=== PATIENT | male | born 1965 | race Two or more races ===

== ENCOUNTER 2020-09-23 11:01 | Outpatient (REF) | payer MEDICARE, MEDICAID, SELFPAY ==
--- NOTE | ~2020-09-23 | XR_ITS ---
EXAMINATION: XR CHEST CLINICAL INFORMATION: Chest pain. COMPARISON: Most recent CT chest dated 11/10/2018. TECHNIQUE: 2 views of the chest were obtained. FINDINGS: Linear scarring redemonstrated within the right lung base. Right basilar pleural thickening appears unchanged. No new pleural effusion or pneumothorax. Stable cardiomediastinal silhouette. No new airspace consolidation. XR/XR chest 2V IMPRESSION: No acute cardiopulmonary findings. Right basilar linear scarring with pleural thickening, unchanged.
== END 2020-09-23 11:02 | disposition home or self-care (01) ==
LOC: HO.XRAY 11:01
PROVIDERS: PCP Internal Medicine; Visit Provider Internal Medicine
DX: R07.9 Chest pain, unspecified (principal)
CPT/HCPCS: 71046

== ENCOUNTER 2020-10-24 08:45 | Outpatient (REF) | payer MEDICARE, MEDICAID, SELFPAY ==
[2020-10-24 10:29] LABS: MANUAL DIFF FLAG NO
[2020-10-24 10:47] LABS: Basophils Percent Auto 0.3 % (0-2); Eosinophils Absolute Auto 0.1 X10*3/uL (0.0-0.4); Eosinophils Percent Auto 1.9 % (0-4); Hematocrit 44.6 % (42-52); Hemoglobin 14.6 g/dl (14.0-18.0); Imm Gran Abs Auto 0.03 X10*3/uL (0.00-0.03); Imm Gran Pct Auto 0.5 % (0.0-0.4); Lymphocytes Absolute Auto 2.6 X10*3/uL (1.2-4.9); Lymphocytes Percent Auto 40.8 % (20-40); Mean Corpuscular HGB Conc 32.7 g/dl (31.0-36.0); Mean Corpuscular Hemoglobin 30.8 pg (27.0-33.0); Mean Corpuscular Volume 94.1 fL (80-98); Monocytes Absolute Auto 0.5 X10*3/uL (0.1-1.2); Monocytes Percent Auto 7.7 % (2-11); Neutrophils Absolute Auto 3.1 X10*3/uL (2.0-8.3); Neutrophils Percent Auto 48.8 % (45-73); Platelet Count 267 X10*3/uL (160-400); Red Blood Count 4.74 X10*6/uL (4.60-5.80); Red Cell Distribution Width 13.7 % (11.0-16.0); White Blood Count 6.4 X10*3/uL (4.8-10.8)
[2020-10-24 11:06] LABS: Alanine Aminotransferase 19 U/L (0-40); Albumin Level 4.4 g/dL (3.5-5.0); Alkaline Phosphatase 75 U/L (39-117); Anion Gap 12 (12-20); Aspartate Amino Transferase 17 U/L (5-37); Bilirubin Total 0.2 mg/dL (0.0-1.0); Blood Urea Nitrogen 12 mg/dL (9-16); Calcium 9.7 mg/dL (8.4-10.2); Carbon Dioxide 27 mmol/L (22-29); Chloride 106 mmol/L (96-108); Cholesterol 238 mg/dL; Estimated Glomerular Filt Rate 53; Glucose Fasting 119 mg/dL (60-99); HDL Cholesterol 40 mg/dL; LDL Cholesterol Calculated 162 mg/dl; Potassium 4.5 mmol/L (3.3-5.1); Sodium 140 mmol/L (135-145); Triglycerides 184 mg/dL
[2020-10-31 15:41] LABS: TS Negative Control Passed; TS Panel A 0; TS Panel B 1; TS Positive Control Passed; TSpotTB Negative (SeeBelow)
== END 2020-10-24 08:46 | disposition home or self-care (01) ==
LOC: HO.LAB 08:45
PROVIDERS: PCP Internal Medicine; Visit Provider Internal Medicine
DX: Z11.1 Encounter for screening for respiratory tuberculosis (principal); D64.9 Anemia, unspecified; E66.9 Obesity, unspecified; Z68.36 Body mass index [BMI] 36.0-36.9, adult; E78.5 Hyperlipidemia, unspecified
CPT/HCPCS: 36415; 80053; 80061; 85025; 86481

== ENCOUNTER 2021-10-30 08:18 | Outpatient (REF) | payer MEDICARE, MEDICAID, SELFPAY ==
--- NOTE | ~2021-10-30 | XR_ITS ---
EXAMINATION: XR CHEST CLINICAL INFORMATION: R06.02 - Shortness of breath . Prior right lower lobectomy. COMPARISON: Chest radiographs 09/23/2020, 10/04/2017, 06/20/2017; CT chest noncontrast 11/10/2018. TECHNIQUE: 2 views of the chest were obtained. FINDINGS: There is mild volume loss on the right with disc atelectasis versus scarring right medial base similar to prior exam 05/24/2020. There is mild blunting right posterior costophrenic sulcus possibly trace effusion, also stable. There is no lobar or segmental airspace consolidation or groundglass opacity. Left costophrenic sulci are clear. Heart size normal. Vascularity normal. No acute bony abnormality. XR/XR chest 2V IMPRESSION: -Postsurgical changes on right with mild volume loss, blunting posterior costophrenic sulcus, and disc atelectasis versus scarring right medial base. -No acute intrathoracic disease from prior study 09/23/2020.
[2021-10-30 09:34] LABS: Alanine Aminotransferase 21 U/L (0-40); Albumin Level 4.4 g/dL (3.5-5.0); Alkaline Phosphatase 78 U/L (39-117); Anion Gap 15 (12-20); Aspartate Amino Transferase 17 U/L (5-37); Bilirubin Total 0.3 mg/dL (0.0-1.0); Blood Urea Nitrogen 13 mg/dL (9-16); Calcium 9.5 mg/dL (8.4-10.2); Carbon Dioxide 25 mmol/L (22-29); Chloride 107 mmol/L (96-108); Cholesterol 245 mg/dL; Estimated Glomerular Filt Rate 54; Glucose Fasting 132 mg/dL (60-99); HDL Cholesterol 38 mg/dL; LDL Cholesterol Calculated 175 mg/dl; Potassium 4.4 mmol/L (3.3-5.1); Sodium 143 mmol/L (135-145); Total Protein 7.5 g/dL (6.5-8.0); Triglycerides 160 mg/dL
== END 2021-10-30 08:19 | disposition home or self-care (01) ==
LOC: HO.XRAY 08:18
PROVIDERS: PCP Internal Medicine; Visit Provider Internal Medicine
DX: Z00.00 Encounter for general adult medical examination without abnormal findings (principal); R06.02 Shortness of breath
CPT/HCPCS: 36415; 71046; 80053; 80061

== ENCOUNTER → 2021-12-11 10:39 | Outpatient (BNVA) | payer MEDICARE, MEDICAID, SELFPAY | PROVIDERS: PCP Internal Medicine; Visit Provider Physician Assistant | DX: Z12.11 Encounter for screening for malignant neoplasm of colon (principal); D12.6 Benign neoplasm of colon, unspecified; Z86.010 Personal history of colon polyps | CPT/HCPCS: 99202 ==

== ENCOUNTER 2022-11-01 10:49 | Outpatient (REF) | payer MEDICARE, MEDICAID, SELFPAY ==
--- NOTE | ~2022-11-01 | XR_ITS ---
EXAMINATION: XR CHEST CLINICAL INFORMATION: Personal history of malignant carcinoid of the bronchus COMPARISON: 10/30/2021 TECHNIQUE: 2 views of the chest were obtained. FINDINGS: Continued right basilar opacity consistent with chronic atelectasis or scarring. Change at the right cardiophrenic angle is stable. There is no suspicious increase here. The remainder lung cantu are grossly clear. Low lung volumes. Cardiac silhouette is comparable. XR/XR chest 2V IMPRESSION: Stable chest x-ray from one year ago. Changes on the right are described. No suspicion for increase. No new finding.
== END 2022-11-01 10:50 | disposition home or self-care (01) ==
LOC: HO.XRAY 10:49
PROVIDERS: PCP Internal Medicine; Visit Provider Physician Assistant
DX: Z01.818 Encounter for other preprocedural examination (principal); D3A.090 Benign carcinoid tumor of the bronchus and lung; Z85.110 Personal history of malignant carcinoid tumor of bronchus and lung; Z86.010 Personal history of colon polyps
CPT/HCPCS: 71046; 99212

== ENCOUNTER 2022-11-01 10:49 | Outpatient (AMB) | payer MEDICARE, MEDICAID, SELFPAY ==
--- NOTE | 2022-11-01 10:58 | MHC.OFFVIS ---
Intake Vital Signs 11/01/22 11:02 Height 5 ft 7 in Weight 231 lb BMI 36.2 BP 117/82 Blood Pressure Location Lt brachial Position Sitting Pulse 97 Intake Visit Reasons: Colonoscopy Screening Intake Note: Patient follow up for Pre Colonoscopy screening. Patient cc: Human Service Specialist Required: Yes Accompanied by: Spouse Allergies No Known Allergies Allergy (Verified 11/01/22 10:58) HPI HPI Comments History of Present Illness Details A 57 y/o male follows back to discuss colonoscopy-personal history of multiple colon polyps-his accompanies him. Great appetite, normal bowels. No respiratory or cardiac issues His history of lung carcinoid he occasionally gets right upper back discomfort he was to have chest x-ray he expresses anxiety a possible return Expresses his anxiety on occasion may have shortness of breath on exertion however in that may as well be associated with his anxiety. He feels very well overall otherwise. 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 ADRIANA (generalized anxiety disorder) Class 2 obesity with body mass index (BMI) of 36.0 to 36.9 in adult Surgical History History of surgery History of surgery History of surgery on arm Family History Father Cancer Mother Stomach cancer Sister Myocardial infarction Brother Cancer Son Anxiety and depression Family/Other FH: mental illness Social History Housing: Apartment Alcohol intake: current Alcohol intake frequency: a few times a month Alcohol type: beer Patient Tobacco Use Status: Former Tobacco user Tobacco use type: Cigarette Cigarettes Per Day: 8 e-Cigarette/Vaping Use: Never Used Second Hand Smoke Exposure: No service: No Current occupational status: unemployed and disabled Cognitive needs: No Hearing needs: No Vision needs: Yes Review of Systems Const All systems reviewed & are unremarkable except as noted in HPI and below Card Denies chest pain, Denies dyspnea and Reports dyspnea on exertion (Infrequent) Resp Denies dyspnea and Reports dyspnea on exertion (Infrequent) GI Denies abdominal pain, Denies heartburn, Denies diarrhea, Denies nausea and Denies vomiting 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) Physical Exam Vital Signs: Last Vital Signs Pulse 97 11/01/22 11:02 BP 117/82 11/01/22 11:02 BMI result Body Mass Index 36.2 Const General: cooperative, healthy appearing, comfortable and no acute distress Orientation/consciousness: patient oriented x3 Limitations: language barrier Eyes Sclerae: sclerae normal Resp Effort & Inspection: normal respiratory effort and able to speak in complete sentences Auscultation: no rhonchi, no wheezes and diminished lung sounds Cardio Rate: regular rate Rhythm: regular rhythm Heart sounds: S1 normal heart sound present and S2 normal heart sound present GI Inspection: Yes obesity Palpation (GI): Soft to palpation and nontender Auscultation: normal bowel sounds Skin General skin exam: no rashes or lesions noted Neuro General: patient oriented x3 Extrem General: Yes full ROM Psych Appearance: grossly normal and well kempt Mental Status: mental status grossly normal Speech and movement: Normal speech and movement present and Clear speech present Affect: normal affect Thought process: Normal thought process present Thought content: Normal thought content present Insight: Good insight present (Psych) Judgement: Good judgement present (Psych) Results Reviewed Results Reviewed: Results Reviewed: 12/2018- Harper-Adenoma- multiple- ie:-60 cm, @ 35 cm, hepatic flexure(2), distal and proxinal transverse - repeat 3 years XR/XR chest 2V IMPRESSION: -Postsurgical changes on right with mild volume loss, blunting posterior costophrenic sulcus, and disc atelectasis versus scarring right medial base. -No acute intrathoracic disease from prior study 09/23/2020. Assessment & Plan Assessment & Plan (1) Encounter for colonoscopy due to history of adenomatous colonic polyps: Comment: Discussed procedure, rare risk need for escorted due to anesthesia Code(s): Z12.11 - Encounter for screening for malignant neoplasm of colon; Z86.010 - Personal history of colonic polyps Plan Polyp surveillance colonoscopy MiraLax Gatorade split prep CXR-will send to PCP Orders: Orders Colonoscopy - GI Use Only Today Z12.11 - Encounter for screening for malignant neoplasm of colon, Z86.010 - Personal history of colonic polyps XR chest 2V Today D3A.090 - Benign carcinoid tumor of the bronchus and lung, Z85.110 - Personal history of malignant carcinoid tumor of bronchus and lung Medications: New bisacodyl (Dulcolax (bisacodyl)) Take 4 tablets by mouth at 12:00pm the day before your procedure. 20 mg (4 x 5 mg) PO ONCE 1 day 4 tabs 0RF colonoscopy prep Z12.11 - Encounter for screening for malignant neoplasm of colon polyethylene glycol 3350 (Miralax) Take as directed by mouth the day before your procedure. 238 grams PO ONCE 1 day PRN 238 grams 0RF laxative effect Patient Instructions: Very pleasant 57-year-old Gent personal history colon polyps due for Polyp surveillance colonoscopy MiraLax Gatorade split prep CXR-sent to PCP he has a follow-up Coding Level of Care Code Est Pt Level 3 (44019) Diagnoses Encounter for colonoscopy due to history of adenomatous colonic polyps Z12.11; Z86.010 Time Spent (min) 30
[2022-11-01 11:02] VITALS: BP 117/82; PULSE 97; BMI 36.2
== END 2022-11-01 11:39 | disposition home or self-care (01) ==
PROVIDERS: PCP Internal Medicine; Visit Provider Physician Assistant
DX: Z86.010 Personal history of colon polyps (principal); Z12.11 Encounter for screening for malignant neoplasm of colon
CPT/HCPCS: 99213

== ENCOUNTER 2022-12-25 11:16 | Day surgery (SDC) | payer MEDICARE, MEDICAID, SELFPAY ==
[2022-12-21 15:06] VITALS: BMI 36.2
--- NOTE | 2022-12-24 11:44 | HO.ANESPROP2 ---
Documented by User: Shira Horan NP 12/24/22 11:45 HPI - Anesthesia Eval Consult details Narrative: 57yo M for Colonoscopy Lung CA s/p lobectomy 2018 [facility] Active Problems Active Problems: All Active Problems (Updated 12/21/22 @ 15:07 by Grace Almonte, NAKUL) Encounter for colonoscopy due to history of adenomatous colonic polyps (Acute) Pure hypercholesterolemia (Acute) Impaired glucose tolerance (Acute) Tubular adenoma of colon (Acute) Encounter for physical examination (Acute) Carcinoid tumor of lung (Acute) Minimal recurrent major depressive disorder (Acute) ADRIANA (generalized anxiety disorder) (Acute) Class 2 obesity with body mass index (BMI) of 36.0 to 36.9 in adult (Acute) Past Medical History Medical History Elevated cholesterol 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 ADRIANA (generalized anxiety disorder) Class 2 obesity with body mass index (BMI) of 36.0 to 36.9 in adult Family History Family History Father Cancer Mother Stomach cancer Sister Myocardial infarction Brother Cancer Son Anxiety and depression Family/Other FH: mental illness Surgical History Surgical History History of surgery History of surgery History of surgery on arm Social History Social History Housing: Apartment Alcohol intake: current Alcohol intake frequency: a few times a month Alcohol type: beer Patient Tobacco Use Status: Current everyday Tobacco user Tobacco use type: Cigarette Cigarettes Per Day: 4 e-Cigarette/Vaping Use: Never Used Second Hand Smoke Exposure: No Use of substances other than those prescribed or required for medical reasons: No Are you DNR?: No Advance Directives: No Advance Directives Information Provided: Yes service: No Current occupational status: unemployed and disabled Cognitive needs: No Hearing needs: No Vision needs: Yes Meds Allergies Allergy/AdvReac Type Severity Reaction Status Date / Time No Known Allergies Allergy Verified 11/01/22 10:58 Home Medications Medication Instructions Recorded Confirmed Last Taken Type buspirone 15 mg tablet 15 mg PO TID 10/24/20 12/21/22 Unknown History prazosin 2 mg capsule 2 mg PO BID 10/24/20 12/21/22 Unknown History Exam Exam Date and Time: December 24, 2022 1144 Height,Weight and Vital Signs: Height 5 ft 7 in Weight 104.78 kg Assessment and Plan Assessment Anesthesia Assessment: Chart Reviewed Documented by User: Rose Marie Frances MD 12/25/22 12:35 [facility] Past Medical History Medical History Elevated cholesterol 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 ADRIANA (generalized anxiety disorder) Class 2 obesity with body mass index (BMI) of 36.0 to 36.9 in adult Family History Family History Father Cancer Mother Stomach cancer Sister Myocardial infarction Brother Cancer Son Anxiety and depression Family/Other FH: mental illness Surgical History Surgical History History of surgery History of surgery History of surgery on arm History of Problems with Anesthesia: No Social History Social History Housing: Apartment Alcohol intake: current Alcohol intake frequency: a few times a month Alcohol type: beer Patient Tobacco Use Status: Current everyday Tobacco user Tobacco use type: Cigarette Cigarettes Per Day: 4 e-Cigarette/Vaping Use: Never Used Second Hand Smoke Exposure: No Use of substances other than those prescribed or required for medical reasons: No Are you DNR?: No Advance Directives: No Advance Directives Information Provided: Yes service: No Current occupational status: unemployed and disabled Cognitive needs: No Hearing needs: No Vision needs: Yes Meds Allergies Allergy/AdvReac Type Severity Reaction Status Date / Time No Known Allergies Allergy Verified 11/01/22 10:58 Home Medications Medication Instructions Recorded Confirmed Last Taken Type buspirone 15 mg tablet 15 mg PO TID 10/24/20 12/21/22 Unknown History prazosin 2 mg capsule 2 mg PO BID 10/24/20 12/21/22 Unknown History Exam Airway Mallampati Class: II TM Dist: >3cm Neck ROM: Full Denture: Upper Loose/Missing/Broken Teeth: Yes, Upper and Lower (RRR) Heart: RRR Lungs: CTA Assessment and Plan Assessment Anesthesia Assessment: Anesthesia Plan Discussed Final Anesthetic Review History of Problems with Anesthesia: No NPO: Yes ASA Class: III Final Preanesthetic Review: Meds/Allgs Chart Reviewed, Consent Obtained/Reviewed and Anes Risks/Benef Reviewed Patient Risk: Intermediate Procedure Risk: Low Anesthetic Plan Anesthetic Plan: MAC: Disposition: Standard PACU
[2022-12-25 11:42] VITALS: BP 127/78; PULSE 87; RESP 16; TEMP 35.8; O2SAT 97
[2022-12-25] MEDS: Lactated Ringers 1,000 ML 100 ML IVCONT (12:06)
--- NOTE | 2022-12-25 12:09 | MHC.SHP ---
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 ADRIANA (generalized anxiety disorder) Class 2 obesity with body mass index (BMI) of 36.0 to 36.9 in adult) History of Previous Operations: Relevant previous surgery/procedure and date(s) (arm surgery) Allergies: Allergies Allergy/AdvReac Type Severity Reaction Status Date / Time No Known Allergies Allergy Verified 11/01/22 10:58 Review of Systems Sugical H&P ROS: Negative: Constitution, Cardiovascular, Respiratory, Neurological, Psychiatric, Hem-Onc, Allergic/Immunologic, Gastrointestinal, Genitourinary, Musculoskeletal, Integumentary, Endocrine and Eyes/Ears/Nose/Throat Exam Surgical H&P Exam: Normal: HEENT, Normal: Heart, Normal: Lungs, Normal: Extremities, Normal: Abdomen, Normal: Skin and Normal: Neurological Plan Diagnosis/Plan: Unchanged I have reviewed the history and physical and performed a pertinent physical examination on my patient. No changes have occurred unless specified. Time Spent With Patient Time: Total time managing care of this patient today ____ minutes.
--- NOTE | 2022-12-25 12:51 | W.PM.OPN ---
Operative Note Operative Note Date of Service: 12/25/22 Narrative: Operative Information Procedure Description: Colonoscopy Indication: screening Anesthesia: MAC COLONOSCOPY Instrument: Olympus variable stiffness pediatric scope 190L Colonoscopy Monitoring: Vital signs and clinical assessment, continuous EKG monitoring, Pulse oximetry, Carbon Dioxide monitoring and blood pressure monitoring were done throughout the procedure. Colon withdrawal time was 14 minutes. Procedure: The patient was placed in the left lateral decubitis position and pre-procedure medications were administered. After a digital rectal examination of the ano-rectum, the video colonoscope was inserted into the rectum and advanced through the colon to the cecum/TI. The colonoscope was slowly withdrawn in a retrograde panoramic fashion and the colon mucosa was carefully examined including a retroflexed view of the rectum. Findings and interventions are described below. Procedure Difficulty: moderate Findings: Terminal Ileum-not intubated Cecum:normal Ascending Colon: normal Transverse Colon - 7-8 mm sessile polyp removed with cold snare Descending Colon: 7-8 mm sessile polyp removed with cold snare Sigmoid Colon: normal Rectum: Retroflexion with small internal hemorrhoids, grade I, x 2 sessile polyps 4-6 mm removed with cold forceps Anorectum - normal Colon preparation: [place] Bowel Preparation Scale Right colon; 1-2 Transverse colon: 2 Left colon; 2 (0 = Unprepared colon segment with mucosa not seen due to solid stool that cannot be cleared. 1 = Portion of mucosa of the colon segment seen, but other areas of the colon segment not well seen due to staining, residual stool and/or opaque liquid. 2 = Minor amount of residual staining, small fragments of stool and/or opaque liquid, but mucosa of colon segment seen well. 3 = Entire mucosa of colon segment seen well with no residual staining, small fragments of stool or opaque liquid) Impression and Post Procedure Diagnosis: polyps internal hemorrhoids Plan: High fiber diet leaflet Avoid straining at stool, epsom salts and sitz bath, anusol supps or cream Repeat Colonoscopy in 3-4 years due to fair prep on right side or earlier if clinically indicated Above findings were reviewed with the patient and relevant handouts were provided if indicated.
[2022-12-25 12:55] VITALS: BP 108/71; PULSE 85; RESP 18; TEMP 36.3; O2SAT 97
[2022-12-25 13:10] VITALS: BP 122/81; PULSE 78; RESP 18; TEMP 36.9; O2SAT 99
== END 2022-12-25 14:10 | disposition home or self-care (01) ==
PROVIDERS: PCP Internal Medicine; Visit Provider Internal Medicine Gastroenterology
PROC: 0DJD8ZZ Inspection of Lower Intestinal Tract, Via Natural or Artificial Opening Endoscopic (ICD-10-PCS; CPT 45378; principal; 2022-12-25 13:00)
DX: Z12.11 Encounter for screening for malignant neoplasm of colon (principal); Z86.010 Personal history of colon polyps; D12.4 Benign neoplasm of descending colon; K63.5 Polyp of colon; K62.1 Rectal polyp; K64.0 First degree hemorrhoids; Z85.110 Personal history of malignant carcinoid tumor of bronchus and lung; Z90.2 Acquired absence of lung [part of]; D3A.090 Benign carcinoid tumor of the bronchus and lung; E66.9 Obesity, unspecified; Z68.36 Body mass index [BMI] 36.0-36.9, adult; F33.2 Major depressive disorder, recurrent severe without psychotic features; E78.00 Pure hypercholesterolemia, unspecified; F41.9 Anxiety disorder, unspecified; Z79.899 Other long term (current) drug therapy; Z98.890 Other specified postprocedural states; Z87.891 Personal history of nicotine dependence
CPT/HCPCS: 45385; 45380; 88305; J2704

== ENCOUNTER → 2022-12-25 11:16 | Outpatient (BNV) | payer MEDICARE, MEDICAID, SELFPAY | PROVIDERS: PCP Internal Medicine; Visit Provider Internal Medicine Gastroenterology | DX: Z12.11 Encounter for screening for malignant neoplasm of colon (principal); D12.3 Benign neoplasm of transverse colon; D12.4 Benign neoplasm of descending colon; D12.8 Benign neoplasm of rectum; K64.0 First degree hemorrhoids | CPT/HCPCS: 45380; 45385 ==

== ENCOUNTER 2023-01-09 13:35 | Outpatient (AMB) | payer MEDICARE, MEDICAID, SELFPAY ==
--- NOTE | 2023-01-09 13:46 | MHC.OFFVIS ---
Intake Vital Signs 01/09/23 13:47 Height 5 ft 7 in Weight 229 lb BMI 35.9 BP 115/69 Blood Pressure Location Lt brachial Position Sitting Pulse 97 Intake Visit Reasons: S/P [place]; Dr. Holbrook Intake Note: Follow up for Colonoscopy results. Patient denies any GI issues. Christmas Bell Ringer Required: Yes Christmas Bell Ringer Name: Florencia De Jesus4 Accompanied by: Spouse Allergies No Known Allergies Allergy (Verified 01/09/23 13:45) Medication List - Last Reconciled 01/10/23 by Fallon Makrs PA-C buspirone 15 mg PO TID prazosin 2 mg PO BID quetiapine 300 mg PO BEDTIME 90 days rosuvastatin 20 mg PO DAILY 90 days HPI HPI Comments History of Present Illness Details A 57 y/o male f/u after colonoscopy-the has no GI or general complaints-his accompanies him Reviewed procedure report, pathology recommended Understands recommend colonoscopy in 3 years for further polyp surveillance he is agreeable Opportunity for questions answered to his satisfaction No nausea, vomiting, hematemesis, hematochezia fever chills PFSH Medical History Elevated cholesterol 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 ADRIANA (generalized anxiety disorder) Class 2 obesity with body mass index (BMI) of 36.0 to 36.9 in adult Surgical History Hx of colonoscopy History of surgery History of surgery History of surgery on arm Family History Father Cancer Mother Stomach cancer Sister Myocardial infarction Brother Cancer Son Anxiety and depression Family/Other FH: mental illness Social History Housing: Apartment Alcohol intake: current Alcohol intake frequency: a few times a month Alcohol type: beer Patient Tobacco Use Status: Current everyday Tobacco user Tobacco use type: Cigarette Cigarettes Per Day: 4 e-Cigarette/Vaping Use: Never Used Second Hand Smoke Exposure: No service: No Current occupational status: unemployed and disabled Cognitive needs: No Hearing needs: No Vision needs: Yes Review of Systems Const All systems reviewed & are unremarkable except as noted in HPI and below Card Denies chest pain and Denies dyspnea Resp Denies dyspnea Physical Exam Vital Signs: Last Vital Signs Pulse 97 01/09/23 13:47 BP 115/69 01/09/23 13:47 BMI result Body Mass Index 35.9 Const General: cooperative, comfortable and no acute distress Orientation/consciousness: patient oriented x3 Limitations: language barrier Skin General skin exam: no rashes or lesions noted Neuro General: patient oriented x3 Extrem General: Yes full ROM Psych Appearance: grossly normal Mental Status: mental status grossly normal Speech and movement: Normal speech and movement present Affect: normal affect Attitude: cooperative Thought process: Normal thought process present Thought content: Normal thought content present Results Reviewed Results Reviewed: mpression and Post Procedure Diagnosis: polyps internal hemorrhoids Plan: High fiber diet leaflet Avoid straining at stool, epsom salts and sitz bath, anusol supps or cream Repeat Colonoscopy in 3-4 years due to fair prep on right side or earlier if clinically indicated Name: Benito Ladd Age/Sex: 57/M Attending: Dale Holbrook MD : 1965 Submitted by: Dale Holbrook MD Copies to: Carmela Pittman MD MR #: [id number] Status: [facility] Collected: 12/25/22 Location: [facility] Received: 12/25/22 Diagnosis A. Colon, transverse, polypectomy: Colonic mucosa with prominent lymphoid aggregate. B. Colon, descending, polypectomy: Tubular adenoma; negative for high-grade dysplasia or carcinoma. C. Rectum, polypectomy: Hyperplastic mucosal polyp. Clinical History Pre-Op Dx: Screening Post-Op Dx: Colon polyps, hemorrhoids Microscopic Description A-C. Microscopic sections reviewed. Material Received A. Polyp transverse colon B. Polyp descending colon C. Polyp rectum Gross Description Received in 3 parts. Part A: Received in formalin labeled ?polyp transverse colon? is a 1.5 x 0.1-0.4 x 0.1-0.25 cm ugarte-red elongate-papular tissue fragment, submitted in toto in a cassette labeled A. Part B: Received in formalin labeled ?polyp descending colon? are 4 focally congested and hemorrhagic, ugarte-red irregular, rectangular and papular tissue fragments ranging from 0.3-0.6 cm, submitted in toto in a cassette labeled B. Part C: Received in formalin labeled ?polyp rectum? are 4 ugarte irregular tissue fragments ranging from less than 0.1-0.15 cm, submitted in toto in a cassette labeled C. CEDS Copies To Dale Holbrook MD [address] [place] [address] Patient: Benito Ladd Age/Sex: 57/M MR#: [id number] Page 1 of 2 Assessment & Plan Assessment & Plan (1) Tubular adenoma of colon: Comment: 2019- , 223 Code(s): D12.6 - Benign neoplasm of colon, unspecified (2) Serrated polyp of colon: Code(s): K63.5 - Polyp of colon Plan: 3 year repeat colonoscopy w/ Yusef (3) Hemorrhoids: Code(s): K64.9 - Unspecified hemorrhoids Plan: HFD Avoid straining- Plan 3 year repeat colonoscopy w/ Holbrook Maintain high-fiber diet for hemorrhoids -literature given Avoid straining Patient Instructions: Pleasant 57-year-old Gent follows up after recent colonoscopy with polypectomy Review procedure report, pathology as well as recommendations Repeat asymptomatic colonoscopy 3 Maintain high-fiber diet and avoid straining with hemorrhoid Encouraged to call with any questions or concerns Coding Level of Care Code Est Pt Level 3 (86871) Diagnoses Tubular adenoma of colon D12.6 Serrated polyp of colon K63.5 Hemorrhoids K64.9 Time Spent (min) 30 Comment [id number]
[2023-01-09 13:47] VITALS: BP 115/69; PULSE 97; BMI 35.9
== END 2023-01-09 15:04 | disposition home or self-care (01) ==
PROVIDERS: PCP Internal Medicine; Visit Provider Physician Assistant
DX: D12.6 Benign neoplasm of colon, unspecified (principal); K64.9 Unspecified hemorrhoids
CPT/HCPCS: 99213

== ENCOUNTER → 2023-01-09 13:35 | Outpatient (BNVA) | payer MEDICARE, MEDICAID, SELFPAY | PROVIDERS: PCP Internal Medicine; Visit Provider Physician Assistant | DX: K63.5 Polyp of colon (principal); K64.9 Unspecified hemorrhoids; D12.6 Benign neoplasm of colon, unspecified | CPT/HCPCS: 99212 ==

== ENCOUNTER 2023-01-15 15:10 | Outpatient (AMB) | payer MEDICARE, MEDICAID, SELFPAY ==
[2023-01-15 15:23] VITALS: BP 128/80; BMI 35.4
--- NOTE | 2023-01-15 15:23 | A.OFFPC_ITS ---
Vital Signs 01/15/23 15:23 Height 5 ft 7 in Weight 226 lb BMI 35.4 BP 128/80 Blood Pressure Location Lt brachial Position Sitting Intake Visit Reasons: follow up (discomfort) Intake Note: Patient here for a follow up Associate Product Manager Required: No Accompanied by: Self / Same As Patient Allergies No Known Allergies Allergy (Verified 01/15/23 15:37) Medication List - Last Reconciled 01/15/23 by Carmela Shin MD buspirone 15 mg PO TID prazosin 2 mg PO BID quetiapine 300 mg PO BEDTIME 90 days rosuvastatin 20 mg PO DAILY 90 days Tobacco use date assessed: 01/15/23 Dental Screening Dental Screen Date: 01/15/23 Did you have a dental visit in the last 12 months?: No Did you have a dental problem in the last 6 months where you did not have access to dental care?: No Was dental information given to patient?: Patient has dentist HPI HPI Comments 2 History of Present Illness Details This is a 57-year-old male with dyslipidemia, minimal major depression, anxiety and impaired glucose tolerance that comes today complaining of chest wall pain that happens occasional in right side of the chest. Lipid panel will be order. Depression with anxiety is follow by Psychiatry and has been stable with medications. Fasting blood glucose was elevated the last time and this will be repeated. He denies any polyuria or polydipsia. Also denies any intentional weight loss. 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 ADRIANA (generalized anxiety disorder) Class 2 obesity with body mass index (BMI) of 36.0 to 36.9 in adult Surgical History Hx of colonoscopy History of surgery History of surgery History of surgery on arm Family History Father Cancer Mother Stomach cancer Sister Myocardial infarction Brother Cancer Son Anxiety and depression Family/Other FH: mental illness Social History (Updated 01/15/23 @ 15:42 by Carmela Shin MD) Housing: Apartment Alcohol intake: current Alcohol intake frequency: holidays/special occasions only Alcohol type: beer Patient Tobacco Use Status: Current everyday Tobacco user Tobacco use type: Cigarette Cigarettes Per Day: 4 e-Cigarette/Vaping Use: Never Used Second Hand Smoke Exposure: No service: No Current occupational status: unemployed and disabled Cognitive needs: No Hearing needs: No Vision needs: Yes Questionnaire PHQ-9 Over the last 2 weeks, how often have you been bothered by any of the following problems? 1. Little interest or pleasure in doing things: not at all 2. Feeling down, depressed, or hopeless: several days 3. Trouble falling or staying asleep, or sleeping too much: more than half the days 4. Feeling tired or having little energy: not at all 5. Poor appetite or overeating: not at all 6. Feeling bad about yourself - or that you are a failure or have let yourself or your family down: not at all 7. Trouble concentrating on things, such as reading the newspaper or watching television: not at all 8. Moving or speaking so slowly that other people could have noticed. Or the opposite - being so fidgety or restless that you have been moving around a lot more than usual: not at all 9. Thoughts that you would be better off or of hurting yourself in some way: not at all Total score: 3 Depression Screening Interpretation: Positive Depression Screening Follow-up: Community Mental Health Worker F/U Depression Screening Done: Yes 20051 - PHQ-9 Billing: Yes Source: Developed by Drs. Domingo Randolph, Kayleigh Qureshi, Gautam Salgado and colleagues, with an educational rodney from [employer]. Thrive Questionnaire Date Thrive assessed: 01/15/23 I am a: Patient What is your living situation today?: I have a steady place to live Within the past 12 months, did the food you bought not last and you didn't have the money to get more?: Never true Within the past 12 months, did you worry whether your food would run out before you got money to buy more?: Never true Do you have trouble paying for medicines?: No Do you have trouble getting transportation to medical appointments?: No Do you have trouble paying your heating and electricity bill?: No Do you have trouble taking care of your child, family member or friend?: No Do you have trouble with day-to-day activities such as bathing, preparing meals, shopping, managing finances, etc.?: No Are you currently unemployed and looking for a job?: No Are you interested in more education?: No Please select the resources that you would like help with: None Currently or been in a relationship where the following occur: no concerns reported AUDIT C Alcohol Use Questionnaire (AUDIT-C) 1. How often do you have a drink containing alcohol?: Monthly or less 2. How many drinks containing alcohol do you have on a typical day when you are drinking?: 1 or 2 3. How often do you have six or more drinks on one occasion?: Never Total Score: 1 Score Reviewed/Action Taken: No ADRIANA-7 AMB Questionnaire ADRIANA-7 Date ADRIANA - 7 assessed: 01/15/23 Feeling nervous, anxious, or on edge: 1 = Several days Not being able to stop or control worryin = Not at all Worrying too much about different things: 1 = Several days Trouble relaxin = Not at all Being so restless that it is hard to sit still: 0 = Not at all Becoming easily annoyed or irritable: 0 = Not at all Feeling afraid as if something awful might happen: 0 = Not at all Total ADRIANA-7 score (0-4 normal; 5-9 mild; 10-14 moderate; 15-21 severe): 2 Source: Developed by Drs. Domingo Randolph, Kayleigh Qureshi, Gautam Salgado and colleagues, with an educational rodney from [employer]. ADRIANA-7 Assessment Billing ADRIANA-7 Assessment Tool: ADRIANA-7 Assessment 15848 Review of Systems Const All systems reviewed & are unremarkable except as noted in HPI and below Eyes Reports no additional complaints, Denies change in vision and Denies other visual disturbances Card Denies chest pain at rest, Denies chest pain with activity, Denies edema, Denies irregular heart rhythm, Denies claudication, Denies dyspnea, Denies dyspnea on exertion, Denies orthopnea, Denies paroxysmal nocturnal dyspnea and Denies slow heart rate Resp Denies cough, Denies dyspnea and Denies dyspnea on exertion GI Denies abdominal pain, Denies change in bowel habits, Denies excessive flatus, Denies nausea and Denies vomiting Denies urinary hesitancy, Denies urinary incontinence and Denies urinary urgency Musc Denies abnormal gait, Denies atrophy, Denies deformity and Denies limited range of motion Skin/Breast Denies bleeding lesions, Denies changing lesions and Denies rash Neuro Denies abnormal gait, Denies behavioral changes and Denies lack of coordination Psych Denies behavioral changes Physical exam (Primary Care) Vital Signs: Last Vital Signs BP 128/80 01/15/23 15:23 BMI result Body Mass Index 35.4 Tobacco/Smoking Status: Tobacco use Status Tobacco use date assessed 01/15/23 01/15/23 15:30 Patient Tobacco Use Status Current everyday Tobacco 01/15/23 15:42 Tobacco use type Cigarette 01/15/23 15:42 e-Cigarette/Vaping Use Never Used 01/15/23 15:42 PHQ-9: PHQ-9 Score PHQ-9: Total score 3 01/15/23 15:43 Depression Screening Interpretation: Positive Depression Screening Follow-up: Community Mental Health Worker F/U Thrive Assessment: Date of Thrive Assessment Date Thrive assessed 01/15/23 01/15/23 15:30 Currently or been in a relationship where the following occur: no concerns reported Eyes General: appearance normal, both eyes and all related structures Eyelids: Yes eyelids normal Conjunctivae: conjunctivae normal Neck Neck: Yes normal visual inspection and Yes supple Resp Effort & Inspection: normal respiratory effort Auscultation: clear to auscultation bilaterally Cardio Jugular venous distension: no JVD Rate: regular rate Rhythm: regular rhythm Heart sounds: S1 normal heart sound present and S2 normal heart sound present Extrem General: Yes full ROM Psych Appearance: grossly normal Assessment and Plan Assessment & Plan (1) Dyslipidemia: Code(s): E78.5 - Hyperlipidemia, unspecified Plan: Continue statins. Repeat lipid panel. (2) Impaired glucose tolerance: Code(s): R73.02 - Impaired glucose tolerance (oral) Plan: Start low-carbohydrate diet. Repeat fasting blood glucose. (3) Minimal recurrent major depressive disorder: Code(s): F33.9 - Major depressive disorder, recurrent, unspecified Plan: Continue Seroquel. Follow-up with psychiatry. (4) ADRIAAN (generalized anxiety disorder): Code(s): F41.1 - Generalized anxiety disorder Plan: Continue buspirone. Follow-up with psychiatry. Orders: Orders Comprehensive [place]. Panel Fast Today R73.02 - Impaired glucose tolerance (oral) XR chest 2V Today R06.00 - Dyspnea, unspecified Lipid Panel Today E78.5 - Hyperlipidemia, unspecified Vitamin D 25-OH Total Today E55.9 - Vitamin D deficiency, unspecified Coding Level of Care Code Est Pt Level 4 (15204) Diagnoses Dyslipidemia E78.5 Impaired glucose tolerance R73.02 Minimal recurrent major depressive disorder F33.9 ADRIANA (generalized anxiety disorder) F41.1 Additional Codes ADRIANA-7 Assessment Billing - ADRIANA-7 Assessment Tool: ADRIANA-7 Assessment [id number] ([id number]) Time Spent (min) 22
== END 2023-01-15 15:47 | disposition home or self-care (01) ==
PROVIDERS: PCP Internal Medicine; Visit Provider Internal Medicine
DX: E78.5 Hyperlipidemia, unspecified (principal); F33.9 Major depressive disorder, recurrent, unspecified; R73.02 Impaired glucose tolerance (oral); F41.1 Generalized anxiety disorder
CPT/HCPCS: 99214

== ENCOUNTER 2023-01-30 06:58 | Outpatient (REF) | payer MEDICARE, MEDICAID, SELFPAY ==
[2023-01-30 08:11] LABS: Alanine Aminotransferase 18 U/L (0-40); Albumin Level 4.3 g/dL (3.5-5.0); Alkaline Phosphatase 71 U/L (39-117); Anion Gap 11 (12-20); Aspartate Amino Transferase 18 U/L (5-37); Bilirubin Total 0.2 mg/dL (0.0-1.0); Blood Urea Nitrogen 14 mg/dL (9-16); Calcium 9.5 mg/dL (8.4-10.2); Carbon Dioxide 27 mmol/L (22-29); Chloride 109 mmol/L (96-108); Cholesterol 215 mg/dL (<200); Estimated Glomerular Filt Rate > 60; Glucose Fasting 133 mg/dL (60-99); HDL Cholesterol 39 mg/dL (>40); LDL Cholesterol Calculated 151 mg/dL (<100); Potassium 4.1 mmol/L (3.3-5.1); Sodium 143 mmol/L (135-145); Total Protein 7.5 g/dL (6.5-8.0); Triglycerides 128 mg/dL (<150)
[2023-01-30 08:28] LABS: Vitamin D 25-OH Total 28.8 ng/mL (>30)
== END 2023-01-30 06:59 | disposition home or self-care (01) ==
LOC: HO.XRAY 06:58
PROVIDERS: PCP Internal Medicine; Visit Provider Internal Medicine
DX: R06.00 Dyspnea, unspecified (principal); R73.02 Impaired glucose tolerance (oral); E78.5 Hyperlipidemia, unspecified; E55.9 Vitamin D deficiency, unspecified
CPT/HCPCS: 36415; 71046; 80053; 80061; 82306

== ENCOUNTER 2023-02-27 09:14 | Outpatient (AMB) | payer MEDICARE, MEDICAID, SELFPAY ==
--- NOTE | 2023-02-27 09:15 | MHC.PC.OV ---
Vital Signs 02/27/23 09:16 Height 5 ft 7 in Weight 228 lb BMI 35.7 BP 126/82 Blood Pressure Location Lt brachial Position Sitting Intake Visit Reasons: annual exam Intake Note: Patient here for a physical exam Associate Account Executive Required: No Accompanied by: Self / Same As Patient Allergies No Known Allergies Allergy (Verified 02/27/23 09:31) Medication List - Last Reconciled 02/27/23 by Carmela Shin MD buspirone 15 mg PO TID prazosin 2 mg PO BID quetiapine 300 mg PO BEDTIME 90 days rosuvastatin 20 mg PO DAILY 90 days Tobacco use date assessed: 02/27/23 Dental Screening Dental Screen Date: 02/27/23 Did you have a dental visit in the last 12 months?: No Did you have a dental problem in the last 6 months where you did not have access to dental care?: No Was dental information given to patient?: Patient declined HPI HPI Comments History of Present Illness Details This is a 57-year-old male with minimal recurrent major depression that comes for his physical exam. He will see a new psychiatrist in March 2023. For now he needs a refill on Seroquel and his psychiatric medications. Had a colonoscopy December 2022 showing hyperplastic polyp and tubular adenoma and next colonoscopy should be in 2027. Has elevated fasting blood glucose of over 126 with an A1c of 6.3% today which is impaired glucose tolerance. He denies polyuria, polydipsia or unintentional weight loss. He has still a smoker and was advised to quit. 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 ADRIANA (generalized anxiety disorder) Class 2 obesity with body mass index (BMI) of 36.0 to 36.9 in adult Surgical History Hx of colonoscopy History of surgery History of surgery History of surgery on arm Family History Father Cancer Mother Stomach cancer Sister Myocardial infarction Brother Cancer Son Anxiety and depression Family/Other FH: mental illness Social History Housing: Apartment Alcohol intake: current Alcohol intake frequency: holidays/special occasions only Alcohol type: beer Patient Tobacco Use Status: Current everyday Tobacco user Tobacco use type: Cigarette Cigarettes Per Day: 4 e-Cigarette/Vaping Use: Never Used Second Hand Smoke Exposure: No service: No Current occupational status: unemployed and disabled Cognitive needs: No Hearing needs: No Vision needs: Yes Questionnaire PHQ-9 Over the last 2 weeks, how often have you been bothered by any of the following problems? 1. Little interest or pleasure in doing things: not at all 2. Feeling down, depressed, or hopeless: several days 3. Trouble falling or staying asleep, or sleeping too much: more than half the days 4. Feeling tired or having little energy: not at all 5. Poor appetite or overeating: not at all 6. Feeling bad about yourself - or that you are a failure or have let yourself or your family down: not at all 7. Trouble concentrating on things, such as reading the newspaper or watching television: not at all 8. Moving or speaking so slowly that other people could have noticed. Or the opposite - being so fidgety or restless that you have been moving around a lot more than usual: not at all 9. Thoughts that you would be better off or of hurting yourself in some way: not at all Total score: 3 Depression Screening Interpretation: Positive Depression Screening Follow-up: Community Mental Health Worker F/U Depression Screening Done: Yes 13387 - PHQ-9 Billing: Yes Source: Developed by Drs. Domingo Randolph, Kayleigh Qureshi, Gautam Salgado and colleagues, with an educational rodney from [employer]. Thrive Questionnaire Date Thrive assessed: 02/27/23 I am a: Patient What is your living situation today?: I have a steady place to live Within the past 12 months, did the food you bought not last and you didn't have the money to get more?: Never true Within the past 12 months, did you worry whether your food would run out before you got money to buy more?: Never true Do you have trouble paying for medicines?: No Do you have trouble getting transportation to medical appointments?: No Do you have trouble paying your heating and electricity bill?: No Do you have trouble taking care of your child, family member or friend?: No Do you have trouble with day-to-day activities such as bathing, preparing meals, shopping, managing finances, etc.?: No Are you currently unemployed and looking for a job?: No Are you interested in more education?: No Please select the resources that you would like help with: None AUDIT C Alcohol Use Questionnaire (AUDIT-C) 1. How often do you have a drink containing alcohol?: Monthly or less 2. How many drinks containing alcohol do you have on a typical day when you are drinking?: 1 or 2 3. How often do you have six or more drinks on one occasion?: Never Total Score: 1 Score Reviewed/Action Taken: No ADRIANA-7 AMB Questionnaire ADRIANA-7 Date ADRIANA - 7 assessed: 02/27/23 Feeling nervous, anxious, or on edge: 2 = More than half the days Not being able to stop or control worryin = Not at all Worrying too much about different things: 1 = Several days Trouble relaxin = Several days Being so restless that it is hard to sit still: 1 = Several days Becoming easily annoyed or irritable: 0 = Not at all Feeling afraid as if something awful might happen: 0 = Not at all Total ADRIANA-7 score (0-4 normal; 5-9 mild; 10-14 moderate; 15-21 severe): 5 Source: Developed by Drs. Domingo Randolph, Kayleigh Qureshi, Gautam Salgado and colleagues, with an educational rodney from [employer]. ADRIANA-7 Assessment Billing ADRIANA-7 Assessment Tool: ADRIANA-7 Assessment 74228 Review of Systems Const All systems reviewed & are unremarkable except as noted in HPI and below Eyes Reports no additional complaints, Denies change in vision and Denies other visual disturbances Card Denies chest pain at rest, Denies chest pain with activity, Denies edema, Denies irregular heart rhythm, Denies claudication, Denies dyspnea, Denies dyspnea on exertion, Denies orthopnea, Denies paroxysmal nocturnal dyspnea and Denies slow heart rate Resp Denies cough, Denies dyspnea and Denies dyspnea on exertion GI Denies abdominal pain, Denies change in bowel habits, Denies excessive flatus, Denies nausea and Denies vomiting Denies urinary hesitancy, Denies urinary incontinence and Denies urinary urgency Musc Denies abnormal gait, Denies atrophy, Denies deformity and Denies limited range of motion Skin/Breast Denies bleeding lesions, Denies changing lesions and Denies rash Neuro Denies abnormal gait and Denies lack of coordination Physical exam (Primary Care) Vital Signs: Last Vital Signs BP 126/82 02/27/23 09:16 BMI result Body Mass Index 35.7 Tobacco/Smoking Status: Tobacco use Status Tobacco use date assessed 02/27/23 02/27/23 09:20 Patient Tobacco Use Status Current everyday Tobacco 02/27/23 09:20 Tobacco use type Cigarette 02/27/23 09:20 e-Cigarette/Vaping Use Never Used 02/27/23 09:20 PHQ-9: PHQ-9 Score PHQ-9: Total score 3 02/27/23 09:33 Depression Screening Interpretation: Positive Depression Screening Follow-up: Community Mental Health Worker F/U Thrive Assessment: Date of Thrive Assessment Date Thrive assessed 02/27/23 02/27/23 09:20 Const Orientation/consciousness: patient oriented x3 HENMT Head: Yes normal to inspection, Yes normocephalic and Yes atraumatic Ears: external ears normal Eyes General: appearance normal, both eyes and all related structures Eyelids: Yes eyelids normal Conjunctivae: conjunctivae normal Neck Neck: Yes normal visual inspection and Yes supple Resp Effort & Inspection: normal respiratory effort Auscultation: clear to auscultation bilaterally Cardio Jugular venous distension: no JVD Rate: regular rate Rhythm: regular rhythm Heart sounds: S1 normal heart sound present and S2 normal heart sound present GI Inspection: Yes normal to inspection Palpation (GI): Soft to palpation and nontender Auscultation: normal bowel sounds Skin General skin exam: no rashes or lesions noted Neuro General: patient oriented x3 and no focal motor deficits Extrem General: Yes full ROM Psych Appearance: grossly normal Results AMB Hemoglobin A1c AMB Hemoglobin A1c 6.3 % Last Edit by SEAN Jones on 02/27/23 09:39 Assessment and Plan Assessment & Plan (1) Encounter for physical examination: Code(s): Z00.00 - Encounter for general adult medical examination without abnormal findings Plan: Repeat in a year. (2) Minimal recurrent major depressive disorder: Code(s): F33.9 - Major depressive disorder, recurrent, unspecified Plan: Continue Seroquel. Follow-up with counseling. Has psychiatry appointment for next month. Orders: Orders Lipid Panel 4 Months E78.5 - Hyperlipidemia, unspecified AMB Hemoglobin A1c Today R73.02 - Impaired glucose tolerance (oral) Comprehensive [place]. Panel Fast 4 Months R73.02 - Impaired glucose tolerance (oral) Medications: Changed From buspirone 15 mg PO TID To buspirone 15 mg PO TID 90 tabs 0RF 30 days From quetiapine 300 mg PO BEDTIME 90 tabs 0RF 90 days To quetiapine 600 mg (2 x 300 mg) PO BEDTIME 60 tabs 0RF 30 days From prazosin 2 mg PO BID To prazosin 2 mg PO BID 60 caps 0RF 30 days Coding Level of Care Code Est Pt Prev Care 40-64y(85850) Diagnoses Encounter for physical examination Z00.00 Minimal recurrent major depressive disorder F33.9 Additional Codes ADRIANA-7 Assessment Billing - ADRIANA-7 Assessment Tool: ADRIANA-7 Assessment 83145 ([id number]) Time Spent (min) 33
[2023-02-27 09:16] VITALS: BP 126/82; BMI 35.7
== END 2023-02-27 09:44 | disposition home or self-care (01) ==
PROVIDERS: Visit Provider Internal Medicine
DX: Z00.00 Encounter for general adult medical examination without abnormal findings (principal); F33.9 Major depressive disorder, recurrent, unspecified; R73.02 Impaired glucose tolerance (oral)
CPT/HCPCS: 83036; 99396

== ENCOUNTER 2023-07-02 07:32 | Outpatient (AMB) | payer MEDICARE, MEDICAID, SELFPAY ==
--- NOTE | 2023-07-02 07:37 | MHC.PC.OV ---
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 Required: No Accompanied by: Self / Same As Patient Allergies No Known Allergies Allergy (Verified 07/02/23 08:19) Medication List - Last Reconciled 07/02/23 by Carmela Shin MD buspirone 15 mg PO TID 30 days prazosin 2 mg PO BID 30 days quetiapine 600 mg (2 x 300 mg) PO BEDTIME 30 days rosuvastatin 20 mg PO DAILY 90 days Tobacco use date assessed: 07/02/23 Dental Screening Dental Screen Date: 02/27/23 HPI HPI Comments History of Present Illness Details This is a 58-year-old male with minimal recurrent major depression, anxiety, impaired glucose tolerance and dyslipidemia that comes today for follow-up on his conditions. Depression has been stable with Seroquel and anxiety stable with buspirone. Has elevated blood glucose but denies any polyuria, polydipsia or unintentional weight loss. Blood glucose will be monitor. On statins for his dyslipidemia and lipid panel was ordered. No chest pain or shortness of breath. 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 ADRIANA (generalized anxiety disorder) Class 2 obesity with body mass index (BMI) of 36.0 to 36.9 in adult Surgical History Hx of colonoscopy History of surgery History of surgery History of surgery on arm Family History Father Cancer Mother Stomach cancer Sister Myocardial infarction Brother Cancer Son Anxiety and depression Family/Other FH: mental illness Social History Housing: Apartment Alcohol intake: current Alcohol intake frequency: holidays/special occasions only Alcohol type: beer Patient Tobacco Use Status: Former Tobacco user Tobacco use type: Cigarette Cigarettes Per Day: 4 e-Cigarette/Vaping Use: Never Used Second Hand Smoke Exposure: No service: No Current occupational status: unemployed and disabled Cognitive needs: No Hearing needs: No Vision needs: Yes Questionnaire Thrive Questionnaire Date Thrive assessed: 02/27/23 ADRIANA-7 AMB Questionnaire ADRIANA-7 Date ADRIANA - 7 assessed: 02/27/23 Source: Developed by Drs. Domingo Randolph, Kayleigh Qureshi, Gautam Salgado and colleagues, with an educational rodney from [employer]. Review of Systems Const All systems reviewed & are unremarkable except as noted in HPI and below Eyes Reports no additional complaints, Denies change in vision and Denies other visual disturbances Card Denies chest pain at rest, Denies chest pain with activity, Denies edema, Denies irregular heart rhythm, Denies claudication, Denies dyspnea, Denies dyspnea on exertion, Denies orthopnea, Denies paroxysmal nocturnal dyspnea and Denies slow heart rate Resp Denies cough, Denies dyspnea and Denies dyspnea on exertion GI Denies abdominal pain, Denies change in bowel habits, Denies excessive flatus, Denies nausea and Denies vomiting Denies urinary hesitancy, Denies urinary incontinence and Denies urinary urgency Physical exam (Primary Care) Vital Signs: Last Vital Signs BP 130/68 07/02/23 07:38 BMI result Body Mass Index 34.5 Tobacco/Smoking Status: Tobacco use Status Tobacco use date assessed 07/02/23 07/02/23 07:41 Patient Tobacco Use Status Former Tobacco user 07/02/23 07:41 Tobacco use type Cigarette 07/02/23 07:41 e-Cigarette/Vaping Use Never Used 07/02/23 07:41 Thrive Assessment: Date of Thrive Assessment Date Thrive assessed 02/27/23 07/02/23 07:41 Resp Effort & Inspection: normal respiratory effort Auscultation: clear to auscultation bilaterally Cardio Jugular venous distension: no JVD Rate: regular rate Rhythm: regular rhythm Heart sounds: S1 normal heart sound present and S2 normal heart sound present Extrem General: Yes full ROM Psych Appearance: grossly normal Assessment and Plan Assessment & Plan (1) Minimal recurrent major depressive disorder: Code(s): F33.9 - Major depressive disorder, recurrent, unspecified Plan: Continue Seroquel. (2) ADRIANA (generalized anxiety disorder): Code(s): F41.1 - Generalized anxiety disorder Plan: Continue buspirone. (3) Impaired glucose tolerance: Code(s): R73.02 - Impaired glucose tolerance (oral) Plan: Follow-up blood glucose. Start low-carbohydrate diet. (4) Dyslipidemia: Code(s): E78.5 - Hyperlipidemia, unspecified Plan: Continue statins. Repeat lipid panel. Orders: Orders Lipid Panel Today E78.5 - Hyperlipidemia, unspecified Comprehensive [place]. Panel Fast Today E78.5 - Hyperlipidemia, unspecified Coding Level of Care Code Est Pt Level 4 (68621) Diagnoses Minimal recurrent major depressive disorder F33.9 ADRIANA (generalized anxiety disorder) F41.1 Impaired glucose tolerance R73.02 Dyslipidemia E78.5 Time Spent (min) 23
[2023-07-02 07:38] VITALS: BP 130/68; BMI 34.5
== END 2023-07-02 08:25 | disposition home or self-care (01) ==
PROVIDERS: PCP Internal Medicine; Visit Provider Internal Medicine
DX: F33.9 Major depressive disorder, recurrent, unspecified (principal); F41.1 Generalized anxiety disorder; R73.02 Impaired glucose tolerance (oral); E78.5 Hyperlipidemia, unspecified
CPT/HCPCS: 99214

== ENCOUNTER 2023-07-02 08:32 | Outpatient (REF) | payer MEDICARE, MEDICAID, SELFPAY ==
[2023-07-02 09:50] LABS: Alanine Aminotransferase 22 U/L (0-40); Albumin Level 4.5 g/dL (3.5-5.0); Alkaline Phosphatase 75 U/L (39-117); Anion Gap 13 (12-20); Aspartate Amino Transferase 20 U/L (5-37); Bilirubin Total 0.3 mg/dL (0.0-1.0); Blood Urea Nitrogen 14 mg/dL (9-16); Calcium 9.8 mg/dL (8.4-10.2); Carbon Dioxide 26 mmol/L (22-29); Chloride 109 mmol/L (96-108); Cholesterol 131 mg/dL (<200); Estimated Glomerular Filt Rate > 60; Glucose Fasting 126 mg/dL (60-99); HDL Cholesterol 37 mg/dL (>40); LDL Cholesterol Calculated 82 mg/dL (<100); Sodium 144 mmol/L (135-145); Total Protein 7.6 g/dL (6.5-8.0); Triglycerides 61 mg/dL (<150)
== END 2023-07-02 08:33 | disposition home or self-care (01) ==
LOC: HO.LAB 08:32
PROVIDERS: PCP Internal Medicine; Visit Provider Internal Medicine
DX: E78.5 Hyperlipidemia, unspecified (principal)
CPT/HCPCS: 36415; 80053; 80061

== ENCOUNTER 2024-01-20 12:39 | Emergency (ER) | payer MEDICARE, MEDICAID, SELFPAY ==
--- NOTE | ~2024-01-20 | XR_ITS ---
EXAMINATION: XR CHEST CLINICAL INFORMATION: SOB, Pleurisy COMPARISON: 01/30/2023. TECHNIQUE: AP portable view of the chest was obtained. FINDINGS: Cardiac, hilar, and mediastinal contours are normal. Stable right hemidiaphragmatic elevation with parenchymal scarring in the right lung base. Stable mild scarring in the left lower lobe. Cannot exclude a chronic small right effusion, versus pleural thickening. No pneumothorax. No acute bony or soft tissue abnormality. XR/XR chest 1V IMPRESSION: 1. No active pulmonary disease. No significant interval change. 2. Chronic changes right lung base with possible effusion versus pleural thickening/scarring, stable. Electronically signed by: Estrada Emerson MD 01/20/2024 04:24 PM EST
--- NOTE | 2024-01-20 12:41 | ECG_ITS ---
Test Reason : CANCER PT, CHEST PAIN/LUNG PAIN Blood Pressure : / mmHG Vent. Rate : 089 BPM Atrial Rate : 090 BPM P-R Int : 120 ms QRS Dur : 078 ms QT Int : 326 ms P-R-T Axes : 012 021 072 degrees QTc Int : 396 ms Normal sinus rhythm Normal ECG No previous ECGs available Referred By: Harsha Stewart Electronically Signed By:AMBERLY HARRISON MD
[2024-01-20 13:13] VITALS: BP 108/90; PULSE 95; RESP 20; TEMP 37.1; O2SAT 95; BMI 38.5
--- NOTE | 2024-01-20 13:19 | ED.GENADULT ---
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 He has no chest pain, no dyspnea. No recent travel or procedures. He notes no trauma to the area. NO fevers, no chills. He quit smoking 1 month ago. He reports the pain is only present when he coughs. MD complaint: rib pain Onset (ago): day(s) (3) Location: chest Radiation: non-radiation Severity: moderate Quality: stabbing Pain Consistency: intermittent Relieving factors: none Exacerbating factors: other (coughing) Associated symptoms: cough Treatments prior to arrival: none Related Data Previous Rx's ?Medication ?Instructions ?Recorded prazosin 2 mg capsule 2 mg PO BID 30 days #60 caps 03/26/23 quetiapine 300 mg tablet 600 mg (2 x 300 mg) PO BEDTIME 30 03/26/23 days #60 tabs buspirone 15 mg tablet 15 mg PO TID 30 days #90 tabs 03/27/23 rosuvastatin 20 mg tablet 20 mg PO DAILY 90 days #90 tabs 10/08/23 albuterol sulfate 90 mcg/actuation 2 puff inhalation QID PRN 01/20/24 aerosol inhaler shortness of breath or wheezing #6.7 grams lidocaine 5 % topical patch 1 patch topical DAILY #30 ea 01/20/24 prednisone 20 mg tablet 40 mg (2 x 20 mg) PO DAILY 3 days 01/20/24 #6 tabs Allergies Allergy/AdvReac Type Severity Reaction Status Date / Time No Known Allergies Allergy Verified 01/20/24 13:17 Review of Systems Review of Systems: Constitutional : No Weight loss, No Fever, No Chills ENT/Mouth : No sore throat, No Rhinorrhea Eyes: No Eye Pain, No Swelling Cardiovascular : pos rib Pain, no SOB, no Dyspnea on Exertion, No Orthopnea, No Edema, No Palpitations Respiratory : pos Cough, No Sputum Gastrointestinal : no Nausea, No Vomiting, No Diarrhea, No abdominal Pain, No Hematochezia, No Melena Genitourinary : No Dysuria, No Urinary Frequency Musculoskeletal : No joint pain, No Myalgias, No Joint Swelling Skin : No Skin Lesions, No rash Neuro : No Weakness, No Numbness, No Dizziness, No Headache All other systems reviewed and are negative [facility] Past Medical History Attestation statement: The following information was validated with the patient. 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 ADRIANA (generalized anxiety disorder) Class 2 obesity with body mass index (BMI) of 36.0 to 36.9 in adult Surgical History Hx of colonoscopy History of surgery History of surgery History of surgery on arm Family History Family History Father Cancer Mother Stomach cancer Sister Myocardial infarction Brother Cancer Son Anxiety and depression Family/Other FH: mental illness Social History Social History Housing: Apartment Alcohol intake: current Alcohol intake frequency: holidays/special occasions only Alcohol type: beer Patient Tobacco Use Status: Former Tobacco user Tobacco use type: Cigarette Cigarettes Per Day: 4 Smoked in Last 30 Days: No e-Cigarette/Vaping Use: Never Used Second Hand Smoke Exposure: No Use of substances other than those prescribed or required for medical reasons: No Advance Directives: No Advance Directives Information Provided: No Do you have a plan to hurt others: No Plan service: No Current occupational status: unemployed and disabled Cognitive needs: No Hearing needs: No Vision needs: Yes Physical Exam ED Vital Signs: Vital Signs - 24 hr 01/20/24 13:13 01/20/24 18:43 01/20/24 19:52 Temperature 98.7 F 97.3 F 97.3 F Pulse Rate 95 81 81 Respiratory Rate 20 18 18 Blood Pressure 108/90 H 123/78 123/78 Pulse Oximetry 95 95 95 Oxygen Delivery Method Room Air Room Air Room Air BMI result Body Mass Index 38.5 Appearance: Alert. Oriented X3. No acute distress. Eyes: Pupils equal, round and reactive to light. ENT: Pharynx normal. Neck: Normal inspection. Neck supple. CVS: Normal heart rate and rhythm. Pulses normal. Chest: R ribs lateral mild ttp Respiratory: No respiratory distress. Breath sounds normal. Abdomen: Soft and non-tender. Skin: Skin warm and dry. Normal skin color. Extremities: No lower extremity edema. Neuro: Oriented X 3. No motor deficit. No sensory deficit. Course Course Course Narrative: RME: 58-year-old male presents to the ED for 3 days of slight cough with shortness of breath and pleurisy. Patient states pain more in his lungs when he takes a deep breath. Patient denies any recent long travel or recent surgery. Patient denies any fever or chills. Labs EKG chest x-ray ordered Medical Decision Making Medical Decision Making [facility] Narrative: 58 yo male with PMH of HLD, depression and anxiety notes he had localized lung cancer removed 5 to 6 years ago no active cancer at this time now here with R sided rib pain with cough it is not pleuritic but it hurts when he coughs at this time troponin, BNP, EKG, ddimer ordered, CXR for mass - he has clear lungs on exam. Does have rib pain but no signs of trauma. Differential Diagnosis Differential Diagnoses: The differential diagnosis associated with the presentation includes rib pain, atypical for ACS low susp, no active cancer currently doubt VTE but ddimer ordered, pleurisy, chest wall strain Admission/Observation Consideration of admission/observation: Escalation of care including admission/observation considered work up negative stable for DC Lab Data [facility] Lab Attestation statement: I reviewed the patient's lab results. 01/20/24 13:51 01/20/24 13:51 Labs: Lab Results 01/20/24 Range/Units 13:51 WBC 7.8 (4.8-10.8) X10*3/uL RBC 4.69 (4.60-5.80) X10*6/uL Hgb 14.5 (14.0-18.0) g/dl Hct 44.3 (42.0-52.0) % MCV 94.5 (80.0-98.0) fL MCH 30.9 (27.0-33.0) pg MCHC 32.7 (31.0-36.0) g/dl RDW 13.4 (11.0-16.0) % Plt Count 207 (160-400) X10*3/uL MPV 10.5 (9.4-12.4) fL Immature Gran % (Auto) 0.3 (0.0-0.4) % Neut % (Auto) 69.8 (45-73) % Lymph % (Auto) 23.9 (20-40) % Reagan % (Auto) 5.5 (2-11) % Eos % (Auto) 0.4 (0-4) % Baso % (Auto) 0.1 (0-2) % Lymph # (Auto) 1.9 (1.2-4.9) X10*3/uL Reagan # (Auto) 0.4 (0.1-1.2) X10*3/uL Eos # (Auto) 0.0 (0.0-0.4) X10*3/uL Baso # (Auto) 0.0 (0.0-0.2) X10*3/uL Abs Immat Gran (auto) 0.02 (0.00-0.03) X10*3/uL Absolute Neuts (auto) 5.4 (2.0-8.3) x10*3/uL Absolute Nucleated RBC 0.000 (0.0-0.012) X10*3/uL Nucleated RBC % (auto) 0.0 (0.0-0.2) /100WBC PT 10.3 L (10.9-12.4) SEC INR 0.9 (0.9-1.1) APTT 31.2 (26.0-36.8) SEC D-Dimer High Sensitivty < 150 NG/ML Sodium 140 (135-145) mmol/L Potassium 4.3 (3.3-5.1) mmol/L Chloride 108 (96-108) mmol/L Carbon Dioxide 29 (22-29) mmol/L Anion Gap 7 L (12-20) BUN 12 (9-16) mg/dL Creatinine 0.96 (0.5-1.4) mg/dL Estim Creat Clear Calc 88.2 Estimated GFR > 60 Random Glucose 102 (60-115) mg/dL Calcium 8.9 D (8.4-10.2) mg/dL Total Bilirubin 0.3 (0.0-1.0) mg/dL AST 26 (5-37) U/L ALT 31 (0-40) U/L Alkaline Phosphatase 62 (39-117) U/L Troponin I High Sens < 2.7 (<3.5-35.0) ng/L B-Natriuretic Peptide < 10 (<100) pg/mL Total Protein 7.3 (6.5-8.0) g/dL Albumin 4.4 (3.5-5.0) g/dL Influenza Type A (PCR) NEGATIVE (Negative) Influenza Type B (PCR) NEGATIVE (Negative) RSV RNA Qual (PCR) NEGATIVE (Negative) SARS-CoV-2 RNA (RT-PCR) NEGATIVE (Negative) Independent Interpretation I performed an independent interpretation of an: EKG and Plain X-Ray (no mass) Interpretation: Rate: 89 Rhythm: NSR [place]: normal Normal P waves. Normal CINDY. Normal QRS complex. ST T wave : flat t wave aVL, no DANE qTC: 396 prior studies: no acute ischemia The study has been interpreted contemporaneously by me. . Radiology Impression Discussion of test interpretation with radiology: I have reviewed the radiologist's reading. External Record Review External record reviewed: Outpatient record Prescription Management I considered prescription management with: Other Discharge Plan Discharge Clinical Impression: Acute chest wall pain Patient Disposition: Home, Self-Care Instructions: Chest Wall Pain (ED) Additional Instructions: labs and EKG reassuring xray no mass noted return for any worsening symptoms or concerns CT scan needs to be done with your primary care doctor given your history Prescriptions: New lidocaine 5 % adhesive patch,medicated 1 patch topical DAILY Qty: 30 0RF Rx Instructions: leave on most painful area for up to 12 hrs prednisone 20 mg tablet 40 mg PO DAILY 3 Days Qty: 6 0RF albuterol sulfate 90 mcg/actuation HFA aerosol inhaler 2 puff inhalation QID PRN (Reason: shortness of breath or wheezing) Qty: 6.7 0RF No Action prazosin 2 mg capsule 2 mg PO BID 30 Days Qty: 60 0RF quetiapine 300 mg tablet 600 mg PO BEDTIME 30 Days Qty: 60 0RF buspirone 15 mg tablet 15 mg PO TID 30 Days Qty: 90 0RF rosuvastatin 20 mg tablet 20 mg PO DAILY 90 Days Qty: 90 1RF Interventions: ED Discharge Assessment Last Done: 01/20/24 19:52 Discharge Date/Time: 01/20/24 19:53 Print Language: Setswana
[2024-01-20 13:55] LABS: MANUAL DIFF FLAG NO
[2024-01-20 13:57] LABS: Basophils Percent Auto 0.1 % (0-2); Eosinophils Percent Auto 0.4 % (0-4); Hematocrit 44.3 % (42.0-52.0); Hemoglobin 14.5 g/dl (14.0-18.0); Imm Gran Abs Auto 0.02 X10*3/uL (0.00-0.03); Imm Gran Pct Auto 0.3 % (0.0-0.4); Lymphocytes Absolute Auto 1.9 X10*3/uL (1.2-4.9); Lymphocytes Percent Auto 23.9 % (20-40); Mean Corpuscular HGB Conc 32.7 g/dl (31.0-36.0); Mean Corpuscular Hemoglobin 30.9 pg (27.0-33.0); Mean Corpuscular Volume 94.5 fL (80.0-98.0); Mean Platelet Volume 10.5 fL (9.4-12.4); Monocytes Absolute Auto 0.4 X10*3/uL (0.1-1.2); Monocytes Percent Auto 5.5 % (2-11); Neutrophils Absolute Auto 5.4 x10*3/uL (2.0-8.3); Neutrophils Percent Auto 69.8 % (45-73); Platelet Count 207 X10*3/uL (160-400); Red Blood Count 4.69 X10*6/uL (4.60-5.80); Red Cell Distribution Width 13.4 % (11.0-16.0); White Blood Count 7.8 X10*3/uL (4.8-10.8)
[2024-01-20 14:03] LABS: INTERNATIONAL NORM RATIO 0.9 (0.9-1.1); Prothrombin Time 10.3 SEC (10.9-12.4)
[2024-01-20 14:05] LABS: Partial Thromboplastin Time 31.2 SEC (26.0-36.8)
[2024-01-20 14:09] LABS: D Dimer High Sensitivity < 150 NG/ML
[2024-01-20 14:13] LABS: Alanine Aminotransferase 31 U/L (0-40); Albumin Level 4.4 g/dL (3.5-5.0); Alkaline Phosphatase 62 U/L (39-117); Anion Gap 7 (12-20); Aspartate Amino Transferase 26 U/L (5-37); Bilirubin Total 0.3 mg/dL (0.0-1.0); Blood Urea Nitrogen 12 mg/dL (9-16); Calcium 8.9 mg/dL (8.4-10.2); Carbon Dioxide 29 mmol/L (22-29); Chloride 108 mmol/L (96-108); Creatinine Clr Calc Pharmacy 88.2; Estimated Glomerular Filt Rate > 60; Glucose Random 102 mg/dL (60-115); Potassium 4.3 mmol/L (3.3-5.1); Sodium 140 mmol/L (135-145); Total Protein 7.3 g/dL (6.5-8.0)
[2024-01-20 14:17] LABS: B Type Natriuretic Peptide < 10 pg/mL (<100)
[2024-01-20 14:20] LABS: Troponin-I High Sensitivity < 2.7 ng/L (<3.5-35.0)
[2024-01-20 14:33] LABS: Influenza A PCR NEGATIVE (Negative); Influenza B PCR NEGATIVE (Negative); Resp Syncy Virus RNA Qual PCR NEGATIVE (Negative); SARS COV2 PCR INHOUSE NEGATIVE (Negative)
[2024-01-20 18:43] VITALS: BP 123/78; PULSE 81; RESP 18; TEMP 36.3; O2SAT 95
[2024-01-20 19:52] VITALS: BP 123/78; PULSE 81; RESP 18; TEMP 36.3; O2SAT 95
== END 2024-01-20 19:53 | disposition home or self-care (01) ==
PROVIDERS: Physician Assistant; Emergency Provider Emergency Medicine; PCP Internal Medicine
DX: R07.89 Other chest pain (principal); R07.81 Pleurodynia; R05.9 Cough, unspecified; Z79.899 Other long term (current) drug therapy; Z03.818 Encounter for observation for suspected exposure to other biological agents ruled out; Z87.891 Personal history of nicotine dependence
CPT/HCPCS: 0241U; 71045; 80053; 83880; 84484; 85025; 85379; 85610; 85730; 93005; 99283; 99284

== ENCOUNTER → 2024-01-20 12:41 | Outpatient (BNV) | payer MEDICARE, MEDICAID, SELFPAY | PROVIDERS: PCP Internal Medicine; Visit Provider Internal Medicine Cardiovascular Disease | DX: R07.9 Chest pain, unspecified (principal) | CPT/HCPCS: 93010 ==

== ENCOUNTER → 2024-01-20 13:18 | Outpatient (BNV) | payer MEDICARE, MEDICAID, SELFPAY | PROVIDERS: PCP Internal Medicine; Visit Provider Radiology Diagnostic Radiology | DX: J44.9 Chronic obstructive pulmonary disease, unspecified (principal) | CPT/HCPCS: 71045 ==

== ENCOUNTER 2024-01-23 07:34 | Outpatient (AMB) | payer MEDICARE, MEDICAID, SELFPAY ==
--- NOTE | 2024-01-23 07:48 | A.OFFPC_ITS ---
Vital Signs 01/23/24 07:49 Height 5 ft 4 in Weight 224 lb BMI 38.4 BP 122/80 Blood Pressure Location Lt brachial Position Sitting Intake Visit Reasons: follow up Intake Note: Patient here for a follow up Rehabilitation Counsellor Required: No Accompanied by: Self / Same As Patient Allergies No Known Allergies Allergy (Verified 01/23/24 08:11) Medication List - Last Reconciled 01/23/24 by Carmela Shin MD albuterol sulfate 90 mcg/actuation 2 puffs inhalation QID PRN buspirone 15 mg PO TID 30 days lidocaine 5% 1 patch topical DAILY prazosin 2 mg PO BID 30 days prednisone 40 mg (2 x 20 mg) PO DAILY 3 days quetiapine 600 mg (2 x 300 mg) PO BEDTIME 30 days rosuvastatin 20 mg PO DAILY 90 days Tobacco use date assessed: 07/02/23 Dental Screening Dental Screen Date: 01/23/24 Did you have a dental visit in the last 12 months?: Yes Did you have a dental problem in the last 6 months where you did not have access to dental care?: No Was dental information given to patient?: Patient has dentist HPI HPI Comments History of Present Illness Details The patient is a 58-year-old male presenting with dyspnea and musculoskeletal pain. He initially presented to the emergency department on January 19 due to dyspnea, which he has attributed to pulmonary issues. He describes the pain as originating like a cramp in the back, correlating with the lung area, and notes a sensation of crunching followed by breathlessness. This pain intensifies significantly when he exerts himself, like making a fist. The patient previously used an inhaler every four hours, although now only uses it when the pain is significant, believing it will prevent exacerbation. No medications for allergies were noted. He mentioned receiving six tablets of prednisone administered over three days in the emergency room with the last dose taken the day of the conversation. The patient denies any bruising or significant injury to the lung that causes pain, clarifying that muscular pain is not alleviated by inhaler usage. The patient has previous psychiatric management for anxiety and depression, taking quetiapine 300 mg and paroxetine 2 times daily. He also takes rosuvastatin 20 mg for hypercholesterolemia. The patient had an operation with subsequent post-operative fibrotic tissue changes causing discomfort. Discontinuation of adolescent specialist visits occurred amidst COVID-19 disruption. He reported a history of smoking but quit two years prior following his brother's cancer-related decline and . The patient plans to continue with laboratory evaluations, particularly focusing on cholesterol. 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 ADRIANA (generalized anxiety disorder) Class 2 obesity with body mass index (BMI) of 36.0 to 36.9 in adult Surgical History Hx of colonoscopy History of surgery History of surgery History of surgery on arm Family History Father Cancer Mother Stomach cancer Sister Myocardial infarction Brother Cancer Son Anxiety and depression Family/Other FH: mental illness Social History Housing: Apartment Alcohol intake: current Alcohol intake frequency: holidays/special occasions only Alcohol type: beer Patient Tobacco Use Status: Former Tobacco user Tobacco use type: Cigarette Cigarettes Per Day: 4 e-Cigarette/Vaping Use: Never Used Second Hand Smoke Exposure: No service: No Current occupational status: unemployed and disabled Cognitive needs: No Hearing needs: No Vision needs: Yes Questionnaire Thrive Questionnaire Date Thrive assessed: 02/27/23 ADRIANA-7 AMB Questionnaire ADRIANA-7 Date ADRIANA - 7 assessed: 02/27/23 Source: Developed by Drs. Domingo Randolph, Kayleigh Qureshi, Gautam Salgado and colleagues, with an educational rodney from 24/7 Card. Review of Systems Const Details: - Respiratory: Reports intermittent shortness of breath - Musculoskeletal: Reports back pain associated with lung area - Psychological: Reports symptoms of anxiety and depression Physical exam (Primary Care) Vital Signs: Last Vital Signs BP 122/80 01/23/24 07:49 BMI result Body Mass Index 38.4 BMI Assessment/Plan discussion: High BMI High, discussed plan: lifestyle, weight reduction, dietary and physical activity Tobacco/Smoking Status: Tobacco use Status Tobacco use date assessed 07/02/23 01/23/24 07:50 Patient Tobacco Use Status Former Tobacco user 01/23/24 07:50 Tobacco use type Cigarette 01/23/24 07:50 e-Cigarette/Vaping Use Never Used 01/23/24 07:50 Thrive Assessment: Date of Thrive Assessment Date Thrive assessed 02/27/23 01/23/24 07:50 Const Other: General: No confusion Respiratory: Normal respiratory effort, clear to auscultation bilaterally, but patient reports shortness of breath and wheezing Cardiovascular: No jugular venous distension, regular rate, regular rhythm, S1 normal heart sound present and S2 normal heart sound present Extremities: Full ROM Psychology: Grossly normal, patient reports depression and anxiety, under psychiatric care with medication Office Procedures Flu Questionnaire Does the patient have a severe egg allergy?: No Does the patient have severe life threatening allergies?: No Does the patient have a fever or illness today?: No Has the patient ever had Guillain-Murphy Syndrome?: No Has the patient ever had any past reaction to a flu shot?: No Immunizations Fluarix Triv [id number] (PF) 45 mcg (15 mcg x 3)/0.5 mL IM syringe Performing Provider: Carmela Shin MD [facility] Administered by: SEAN Jones on 01/23/24 08:30 Dose Route Admin Location Dispensed Lot Number Expiration Date [facility] Sales Office Manager 0.5 mL IM Left Deltoid 0.5 mL [id number] 08/10/24 [id number] Inbox VIS Given Date VIS Provided VIS Publication Date 01/23/24 Single Vaccine 20 Eligibility Eligibility Date Funding Source Not [facility] Eligible 01/23/24 Private Coding Level of Care Code Est Pt Level 4 (53943) Complex EM visit Add On G2211 Diagnoses Asthma J45.909 Minimal recurrent major depressive disorder F33.9 ADRIANA (generalized anxiety disorder) F41.1 Pure hypercholesterolemia E78.00 Carcinoid tumor of lung D3A.090 Time Spent (min) 21 Assessment & Plan Assessment & Plan (1) Asthma: Code(s): J45.909 - Unspecified asthma, uncomplicated Category: Medical (2) Minimal recurrent major depressive disorder: Code(s): F33.9 - Major depressive disorder, recurrent, unspecified Category: Medical (3) ADRIANA (generalized anxiety disorder): Code(s): F41.1 - Generalized anxiety disorder Category: Medical (4) Pure hypercholesterolemia: Code(s): E78.00 - Pure hypercholesterolemia, unspecified Category: Medical (5) Carcinoid tumor of lung: Code(s): D3A.090 - Benign carcinoid tumor of the bronchus and lung Category: Medical Plan - Evaluate dyspnea and history of carcinoid tumor of lung with pulmonology referral. - Prescribe analgesic medications for pain management, especially targeting post-operative fibrotic pain. - Continue psychiatric medications quetiapine and paroxetine) as prescribed. - Continue rosuvastatin for lipid management. - Recommend follow-up for physical examination and updated laboratory work, particularly cholesterol assessment. - Schedule appointment with pulmonology to ensure continuity of care and review breathing issues. Patient was informed and verbally consented to the use of an ambient scribe for clinic note documentation during this visit. I discussed with the patient the potential connection between his musculoskeletal pain and underlying post-operative changes near the lung area. The patient is advised to consult with a log inspector as previously coordinated care was disrupted due to COVID-19. We explored the impact of general health factors, including the significance of managing both cholesterol and psychiatric conditions effectively. The possible necessity for analgesic treatment was highlighted, and laboratory studies will focus on cardiovascular risk metrics. I emphasized the significance of ongoing psychiatric management and medication adherence in supporting the patient's mental health. Orders: Orders Influenza [id number] Immunization Today Z23 - Encounter for immunization Lipid Panel Today E78.5 - Hyperlipidemia, unspecified Comprehensive [place]. Panel Fast Today E78.5 - Hyperlipidemia, unspecified Referrals Pulmonology Referral D3A.090 - Benign carcinoid tumor of the bronchus and lung, J45.909 - Unspecified asthma, uncomplicated Patient Instructions: - Take analgesics as directed for pain relief. - Maintain psychiatric medication regimen as prescribed. - Attend scheduled lab work for cholesterol and other assessments. - Follow up with pulmonology for breathing-related concerns. - Monitor for any worsening symptoms and seek medical attention if needed.
[2024-01-23 07:49] VITALS: BP 122/80; BMI 38.4
== END 2024-01-23 08:27 | disposition home or self-care (01) ==
PROVIDERS: PCP Internal Medicine; Visit Provider Internal Medicine
DX: J45.909 Unspecified asthma, uncomplicated (principal); F33.9 Major depressive disorder, recurrent, unspecified; D3A.090 Benign carcinoid tumor of the bronchus and lung; F41.1 Generalized anxiety disorder; E78.00 Pure hypercholesterolemia, unspecified

== ENCOUNTER → 2024-01-23 07:34 | Outpatient (BNVA) | payer MEDICARE, MEDICAID, SELFPAY | PROVIDERS: PCP Internal Medicine; Visit Provider Internal Medicine | DX: Z23 Encounter for immunization (principal); D3A.090 Benign carcinoid tumor of the bronchus and lung; J45.909 Unspecified asthma, uncomplicated; F33.9 Major depressive disorder, recurrent, unspecified; F41.1 Generalized anxiety disorder; E78.00 Pure hypercholesterolemia, unspecified | CPT/HCPCS: 90471; 90656; 99202; 99212 ==

== ENCOUNTER 2024-01-23 12:49 | Outpatient (AMB) | payer MEDICARE, MEDICAID, SELFPAY ==
[2024-01-23 13:09] VITALS: BP 122/67; PULSE 89; O2SAT 97; BMI 38.4
--- NOTE | 2024-01-23 13:09 | A.OFFVIS_ITS ---
Vital Signs 01/23/24 13:09 Height 5 ft 4 in Weight 224 lb BMI 38.4 BP 122/67 Blood Pressure Location Rt brachial Position Sitting Pulse 89 Pulse Source Doppler Pulse Oximetry (%) 97 Oxygen Delivery Method Room Air Intake Visit Reasons: Asthma/Hx atypical carcinoid Cashier Host/Hostess Required: Yes Cashier Host/Hostess Name: Maria Luz Robb Ruby Allergies No Known Allergies Allergy (Verified 01/23/24 13:12) HPI HPI Asthma/Hx atypical carcinoid: Details: 58-year-old gentleman, recent 30+ pack-year smoker, with prior history of carcinoid rejection approximately [address] Alejo at [facility] who started the developed pain at the prior surgery site over the last months, significantly worsening over the last week referred for pulmonary evaluation. Patient denies any other pulmonary concerns or complaints. 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 ADRIANA (generalized anxiety disorder) Class 2 obesity with body mass index (BMI) of 36.0 to 36.9 in adult Surgical History Hx of colonoscopy History of surgery History of surgery History of surgery on arm Family History Father Cancer Mother Stomach cancer Sister Myocardial infarction Brother Cancer Son Anxiety and depression Family/Other FH: mental illness Social History (Updated 01/23/24 @ 13:14 by Maria Luz Coley Margarito) Housing: Apartment Alcohol intake: current Alcohol intake frequency: holidays/special occasions only Alcohol type: beer Patient Tobacco Use Status: Former Tobacco user Tobacco use type: Cigarette Cigarettes Per Day: 4 Years Smoked: started around age 16, 0.5PPD, quit e-Cigarette/Vaping Use: Never Used Second Hand Smoke Exposure: No service: No Current occupational status: unemployed and disabled Cognitive needs: No Hearing needs: No Vision needs: Yes Review of Systems Const Denies daytime sleepiness, Denies excessive sweating, Denies fatigue, Denies fever(s), Denies lethargy, Denies malaise, Denies night sweats, Denies snoring and Denies weight loss Eyes Denies blurry vision and Denies itchy eyes ENT Denies nasal congestion, Denies post nasal drip, Denies sinus pain, Denies sinus pressure and Denies other ( Thrush) Card Denies chest pain, Denies pedal edema, Denies dyspnea, Denies orthopnea and Denies paroxysmal nocturnal dyspnea Resp Details: Right basilar chest wall pain with deep inspirations Denies cough, Denies hemoptysis, Denies excessive phlegm production, Denies dyspnea, Denies snoring and Denies wheezing GI Denies abdominal pain and Denies heartburn Musc Denies myalgias, Denies arthralgias and Denies joint swelling Skin/Breast Denies rash Neuro Denies memory loss and Denies seizure-like activity Psych Denies abnormal sleep pattern, Denies anxiety and Denies memory loss Endo Denies excessive sweating, Denies fatigue and Denies heat intolerance Carlito/Lymph Denies easy bruising Aller/Immun Denies itchy eyes, Denies seasonal rhinorrhea and Denies wheezing Physical Exam Vital Signs: Last Vital Signs Pulse 89 01/23/24 13:09 BP 122/67 01/23/24 13:09 Pulse Ox 97 01/23/24 13:09 Oxygen Delivery Method Room Air 01/23/24 13:09 BMI result Body Mass Index 38.4 Const General: no acute distress and alert Nutritional Appearance: not obese Orientation/consciousness: Other orientation findings ( oriented) HEENT Head: Yes atraumatic Eyes General: appearance normal, both eyes and all related structures Sclerae: sclerae normal EOM: EOMs intact bilaterally Neck Neck: Yes supple Lymphatic: no lymphadenopathy noted Resp Effort & Inspection: normal respiratory effort and no use of accessory muscles Auscultation: clear to auscultation bilaterally Cardio Rate: regular rate Rhythm: regular rhythm Heart sounds: no gallops, no murmurs and no rubs Skin General skin exam: other ( warm) Extrem General: No clubbing, No cyanosis and No edema Assessment & Plan Assessment & Plan (1) Carcinoid tumor of lung: Code(s): D3A.090 - Benign carcinoid tumor of the bronchus and lung Category: Medical Plan: History of prior carcinoid resection, now with significant pain at the prior surgery site. Will obtain CT chest for further evaluation. (2) Asthma: Code(s): J45.909 - Unspecified asthma, uncomplicated Category: Medical Plan: Likely underlying COPD or asthma/COPD overlap syndrome. Will obtain full PFT. Continue as needed albuterol MDI. Orders: Orders CT chest wo IV con Today D3A.090 - Benign carcinoid tumor of the bronchus and lung PFT pulmonary function test Today J45.909 - Unspecified asthma, uncomplicated Coding Level of Care Code New Pt Level 4 (49225) Diagnoses Carcinoid tumor of lung D3A.090 Asthma J45.909
== END 2024-01-23 13:29 | disposition home or self-care (01) ==
PROVIDERS: PCP Internal Medicine; Referring Provider Internal Medicine; Visit Provider Internal Medicine Pulmonary Disease
DX: D3A.090 Benign carcinoid tumor of the bronchus and lung (principal); J45.909 Unspecified asthma, uncomplicated
CPT/HCPCS: 99204

== ENCOUNTER 2024-01-31 13:35 | Outpatient (REF) | payer MEDICARE, MEDICAID, SELFPAY ==
--- NOTE | ~2024-01-31 | CT_ITS ---
EXAMINATION: CT CHEST WITHOUT CONTRAST CLINICAL INFORMATION: Benign carcinoid tumor of the bronchus and lung COMPARISON: Chest radiograph 01/20/2024, CT chest 04/25/2017, PET/CT 07/04/2017 TECHNIQUE: Multidetector volumetric CT imaging of the chest was done. Axial MIP volume rendering provided. Sagittal and coronal reformatted images were obtained. This CT examination was performed using dose optimization techniques as appropriate, variously including the following: *Automated exposure control *Adjustment of mA and/or kV according to patient size (this includes techniques or standardized protocols for targeted exams where dose is matched to indication/reason for exam; i.e. extremities or head) *Use of iterative reconstruction technique DLP: 233 mGy-cm FINDINGS: LUNGS: There is mild elevation of the right hemidiaphragm. There is bibasilar atelectasis, right greater than left. No concerning lung masses are seen. Some calcifications are seen in the medial costophrenic sulcus on the right. MEDIASTINUM: There is mild cardiomegaly. No mediastinal or hilar lymphadenopathy seen. CORONARY ARTERY CALCIFICATION: None visualized with certainty on this study. PLEURA: There is no pleural effusion. No pleural mass or thickening. AXILLA: No lymphadenopathy. UPPER ABDOMEN: Unremarkable. OSSEOUS STRUCTURES: Unremarkable. CT/CT chest wo IV con IMPRESSION: 1. No evidence of recurrent or metastatic disease. 2. Incidental note made of mild cardiomegaly and bibasilar atelectasis. Fleischner guidelines were followed. Electronically signed by: Danie Macedo MD 02/03/2024 01:35 PM [facility]
== END 2024-01-31 13:36 | disposition home or self-care (01) ==
LOC: HO.CT 13:35
PROVIDERS: PCP Internal Medicine; Visit Provider Internal Medicine Pulmonary Disease
DX: D3A.090 Benign carcinoid tumor of the bronchus and lung (principal)
CPT/HCPCS: 71250

== ENCOUNTER 2024-03-04 08:00 | Outpatient (AMB) | payer MEDICARE, MEDICAID, SELFPAY ==
--- OUTSIDE RECORDS SUMMARY | 2024-03-04 08:03 | XMS_ITS | Clinical Summary ---
Author Organization [facility] ity Address [address] [place] [address] Care Team Providers Care Research Physician Name Role Phone Unavailable Primary Care Provider Unavailabl e Social History Tobacco Use Types Packs/Day Years Used Date Smoking Tobacco: Never Assessed Sex and Gender Information Value Date Recorded Sex Assigned at Not on file Gender Identity Not on file Sexual Orientation Not on file Plan of Treatment Health Maintenance Due Date Last Done Comments DTaP,Tdap,and Td Vaccines (1 - Tdap) 1982 Zoster Vaccines (1 of 2) 2013 Cholesterol Screening (Lipid Panel) 01/14/2022 Colorectal Cancer Screening: Colonoscopy 01/14/2022 Depression Screening 01/14/2022 HIV Screening 01/14/2022 Hepatitis C Screening 01/14/2022 Social Influencers of Health Screening 01/14/2022 COVID-19 Vaccine ( - 2023-2 5 season) 2023 Influenza Vaccine (#1) 2023 RSV Immunization Patients 60 + Years Old (1 - 1-dose 75+ series) 2038 HIB Vaccines Aged Out No longer eligi ble based on patient's age to complete this topic HPV Vaccines Aged Out No longer eligi ble based on patient's age to complete this topic Hepatitis A Vaccines Aged Out No long er eligible based on patient's age to complete this topic Hepatitis B Vaccines Aged Out No long er eligible based on patient's age to complete this topic IPV Vaccines Aged Out No longer eligi ble based on patient's age to complete this topic MMR Vaccines Aged Out No longer eligi ble based on patient's age to complete this topic Meningococcal ACWY Vaccine Aged Out N o longer eligible based on patient's age to complete this topic Pneumococcal Vaccine: Pediat rics (0 to 5 Years) and At-Risk Patients (6 to 64 Years) Aged Out No longer eligible b ased on patient's age to complete this topic RSV Immunization Patients Un jeovanny 20 months Aged Out No longer eligible b ased on patient's age to complete this topic Varicella Vaccines Aged Out No longer eligible based on patient's age to complete this topic
[2024-03-04 08:19] VITALS: BP 130/72; BMI 39.6
--- NOTE | 2024-03-04 08:19 | MHC.PC.OV ---
Vital Signs 03/04/24 08:19 Height 5 ft 4 in Weight 231 lb BMI 39.6 BP 130/72 Blood Pressure Location Lt brachial Position Sitting Intake Visit Reasons: PE Intake Note: Patient here for a physical exam Hydroelectric Production Manager Required: Yes Hydroelectric Production Manager Language: Office Machine Punch Operator Name: Carmela Shin MD Information Interpreted: non-clinical & clinical Accompanied by: Self / Same As Patient Allergies No Known Allergies Allergy (Verified 03/04/24 08:43) Medication List - Last Reconciled 03/04/24 by Carmela Shin MD albuterol sulfate 90 mcg/actuation 2 puffs inhalation QID PRN buspirone 15 mg PO TID 30 days prazosin 2 mg PO BID 30 days quetiapine 600 mg (2 x 300 mg) PO BEDTIME 30 days rosuvastatin 20 mg PO DAILY 90 days Tobacco use date assessed: 03/04/24 Dental Screening Dental Screen Date: 03/04/24 Did you have a dental visit in the last 12 months?: No Did you have a dental problem in the last 6 months where you did not have access to dental care?: No Was dental information given to patient?: Patient has dentist HPI HPI Comments History of Present Illness Details The patient is a 59-year-old male presenting for an annual physical examination. He underwent a colonoscopy in 2022, during which a polyp was excised that was identified as a tubular adenoma. The patient reports a history of a carcinoid tumor in the lung, for which he underwent a lobectomy in 2018. There is no current evidence of metastatic disease based on a recent CT scan, though there was a mention of slight cardiomegaly and atelectasis. He manages an anxiety disorder primarily with medications, including buspirone and prazosin, and is also taking Quetiapine for depression and insomnia and Rosuvastatin for anxiety and hyperlipidemia, respectively. The patient has had screening labs indicating a glucose level suggesting prediabetes. His latest cholesterol was under adequate control. Past family history includes cancer, with both parents having succumbed to it, although the primary site is not specified. He quit smoking some years ago, and he controls his alcohol intake though details are not extensively discussed. - Received a tetanus vaccine in 2015; next booster advised during the visit. - Colonoscopy performed in 2022 with polypectomy for tubular adenoma. - Screening labs in January included glucose and cardiac enzymes, with glucose at 102 mg/dL. - Last cholesterol levels were controlled adequately; repeat in four months advised. - Normal electrocardiogram result at last screening. - Chest CT scan revealed no signs of metastatic disease, slight cardiomegaly, and atelectasis. 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 ADRIANA (generalized anxiety disorder) Class 2 obesity with body mass index (BMI) of 36.0 to 36.9 in adult Surgical History Hx of colonoscopy History of surgery History of surgery History of surgery on arm Family History Father Cancer Mother Stomach cancer Sister Myocardial infarction Brother Cancer Son Anxiety and depression Family/Other FH: mental illness Social History (Updated 03/04/24 @ 08:49 by Carmela Shin MD) Housing: Apartment Alcohol intake: former Patient Tobacco Use Status: Former Tobacco user Tobacco use type: Cigarette Cigarettes Per Day: 4 Years Smoked: started around age 16, 0.5PPD, quit e-Cigarette/Vaping Use: Never Used Second Hand Smoke Exposure: No service: No Current occupational status: unemployed and disabled Cognitive needs: No Hearing needs: No Vision needs: Yes Questionnaire PHQ-9 Over the last 2 weeks, how often have you been bothered by any of the following problems? 1. Little interest or pleasure in doing things: not at all 2. Feeling down, depressed, or hopeless: not at all 3. Trouble falling or staying asleep, or sleeping too much: not at all 4. Feeling tired or having little energy: not at all 5. Poor appetite or overeating: not at all 6. Feeling bad about yourself - or that you are a failure or have let yourself or your family down: not at all 7. Trouble concentrating on things, such as reading the newspaper or watching television: not at all 8. Moving or speaking so slowly that other people could have noticed. Or the opposite - being so fidgety or restless that you have been moving around a lot more than usual: not at all 9. Thoughts that you would be better off or of hurting yourself in some way: not at all Total score: 0 Depression Screening Interpretation: Negative Depression Screening Done: Yes 88082 - PHQ-9 Billing: Yes Source: Developed by Drs. Domingo Randolph, Kayleigh Qureshi, Gautam Salgado and colleagues, with an educational rodney from [employer]. Thrive Questionnaire Date Thrive assessed: 03/04/24 I am a: Patient What is your living situation today?: I have a steady place to live Within the past 12 months, did the food you bought not last and you didn't have the money to get more?: I choose not to answer this question Within the past 12 months, did you worry whether your food would run out before you got money to buy more?: I choose not to answer this question Do you have trouble paying for medicines?: I choose not to answer this question Do you have trouble getting transportation to medical appointments?: I choose not to answer this question Do you have trouble paying your heating and electricity bill?: I choose not to answer this question Do you have trouble taking care of your child, family member or friend?: I choose not to answer this question Do you have trouble with day-to-day activities such as bathing, preparing meals, shopping, managing finances, etc.?: I choose not to answer this question Are you currently unemployed and looking for a job?: I choose not to answer this question Are you interested in more education?: I choose not to answer this question Please select the resources that you would like help with: None Currently or been in a relationship where the following occur: I choose not to answer THRIVE Score: 0 AUDIT C Alcohol Use Questionnaire (AUDIT-C) 1. How often do you have a drink containing alcohol?: Never Total Score: 0 Score Reviewed/Action Taken: No ADRIANA-7 AMB Questionnaire ADRIANA-7 Date ADRIANA - 7 assessed: 03/04/24 Feeling nervous, anxious, or on edge: 1 = Several days Not being able to stop or control worryin = Not at all Worrying too much about different things: 1 = Several days Trouble relaxin = Not at all Being so restless that it is hard to sit still: 0 = Not at all Becoming easily annoyed or irritable: 0 = Not at all Feeling afraid as if something awful might happen: 0 = Not at all Total ADRIANA-7 score (0-4 normal; 5-9 mild; 10-14 moderate; 15-21 severe): 2 Source: Developed by Drs. Domingo Randolph, Kayleigh Qureshi, Gautam Salgado and colleagues, with an educational rodney from [employer]. ADRIANA-7 Assessment Billing ADRIANA-7 Assessment Tool: ADRIANA-7 Assessment 61996 Review of Systems Const All systems reviewed & are unremarkable except as noted in HPI and below Card Denies chest pain at rest, Denies chest pain with activity, Denies edema, Denies irregular heart rhythm, Denies claudication, Denies dyspnea, Denies dyspnea on exertion, Denies orthopnea, Denies paroxysmal nocturnal dyspnea and Denies slow heart rate Resp Denies cough, Denies dyspnea and Denies dyspnea on exertion GI Denies abdominal pain, Denies change in bowel habits, Denies excessive flatus, Denies nausea and Denies vomiting Denies urinary hesitancy, Denies urinary incontinence and Denies urinary urgency Musc Denies abnormal gait, Denies atrophy, Denies deformity and Denies limited range of motion Skin/Breast Denies bleeding lesions, Denies changing lesions and Denies rash Neuro Denies abnormal gait and Denies lack of coordination Physical exam (Primary Care) Vital Signs: Last Vital Signs BP 130/72 03/04/24 08:19 BMI result Body Mass Index 39.6 BMI Assessment/Plan discussion: High BMI High, discussed plan: lifestyle, weight reduction, dietary and physical activity Tobacco/Smoking Status: Tobacco use Status Tobacco use date assessed 03/04/24 03/04/24 08:25 Patient Tobacco Use Status Former Tobacco user 03/04/24 08:25 Tobacco use type Cigarette 03/04/24 08:25 e-Cigarette/Vaping Use Never Used 03/04/24 08:25 PHQ-9: PHQ-9 Score PHQ-9: Total score 0 03/04/24 08:25 Depression Screening Interpretation: Negative Thrive Assessment: Date of Thrive Assessment Date Thrive assessed 03/04/24 03/04/24 08:25 Currently or been in a relationship where the following occur: I choose not to answer HENHI Head: Yes normal to inspection, Yes normocephalic and Yes atraumatic Ears: external ears normal Eyes General: appearance normal, both eyes and all related structures Eyelids: Yes eyelids normal Conjunctivae: conjunctivae normal Neck Neck: Yes normal visual inspection and Yes supple Resp Effort & Inspection: normal respiratory effort Auscultation: clear to auscultation bilaterally Cardio Jugular venous distension: no JVD Rate: regular rate Rhythm: regular rhythm Heart sounds: S1 normal heart sound present and S2 normal heart sound present GI Inspection: Yes normal to inspection Palpation (GI): Soft to palpation and nontender Auscultation: normal bowel sounds Skin General skin exam: no rashes or lesions noted Neuro General: no focal motor deficits Extrem General: Yes full ROM Psych Appearance: grossly normal Coding Level of Care Code Est Pt Prev Care 40-64y(61808) Diagnoses Encounter for physical examination Z00.00 Minimal recurrent major depressive disorder F33.9 Additional Codes PHQ-9 - 21579 - PHQ-9 Billing: Yes ([id number]) ADRIANA-7 Assessment Billing - ADRIANA-7 Assessment Tool: ADRIANA-7 Assessment 28278 ([id number]) Time Spent (min) 30 Assessment & Plan Assessment & Plan (1) Encounter for physical examination: Code(s): Z00.00 - Encounter for general adult medical examination without abnormal findings Category: Medical (2) Minimal recurrent major depressive disorder: Code(s): F33.9 - Major depressive disorder, recurrent, unspecified Category: Medical Plan - Continue current management of anxiety with Buspirone, Prazosin, and Quetiapine regimen. - Continue Rosuvastatin for hyperlipidemia, with follow-up cholesterol testing in four months. - Monitor glucose levels due to prediabetic state, with lifestyle interventions as necessary. - Coordinate care with pulmonology for any respiratory follow-up regarding lung history. - Reinforce health maintenance measures including scheduling for tetanus booster. Patient was informed and verbally consented to the use of an ambient scribe for clinic note documentation during this visit. I addressed the importance of maintaining consistent follow-up for hyperlipidemia, anxiety disorders, and monitoring prediabetes. I endorsed the continuation of current pharmacotherapy for his conditions. We discussed the implications of his recent diagnostic outcomes, particularly the absence of metastatic disease and plans for ongoing vigilance concerning his lung history. The significance of managing lifestyle factors such as previous tobacco use and current alcohol intake was reiterated. Orders: Orders Lipid Panel 4 Months E78.5 - Hyperlipidemia, unspecified Comprehensive [place]. Panel Fast 4 Months Z00.00 - Encounter for general adult medical examination without abnormal findings Medications: Refilled albuterol sulfate 90 mcg/actuation 2 puffs inhalation QID PRN 6.7 grams 0RF shortness of breath or wheezing Patient Instructions: - Continue medications as prescribed. - Schedule tetanus vaccine booster. - Follow up with cholesterol check in four months. - Adhere to recommendations for monitoring and managing prediabetes. - Maintain regular appointments with the word processor operator for lung health. - Report any new or worsening symptoms to our office promptly.
== END 2024-03-04 08:57 | disposition home or self-care (01) ==
PROVIDERS: PCP Internal Medicine; Visit Provider Internal Medicine
DX: Z00.00 Encounter for general adult medical examination without abnormal findings (principal); F33.9 Major depressive disorder, recurrent, unspecified

== ENCOUNTER → 2024-03-04 08:00 | Outpatient (BNVA) | payer MEDICARE, MEDICAID, SELFPAY | PROVIDERS: PCP Internal Medicine; Visit Provider Internal Medicine | DX: Z00.00 Encounter for general adult medical examination without abnormal findings (principal); F33.9 Major depressive disorder, recurrent, unspecified; E78.00 Pure hypercholesterolemia, unspecified | CPT/HCPCS: 96127; 99396 ==

== ENCOUNTER 2024-03-13 08:25 | Outpatient (REF) | payer MEDICARE, MEDICAID, SELFPAY ==
--- OUTSIDE RECORDS SUMMARY | 2024-03-13 08:35 | XMS_ITS | Clinical Summary ---
Author Organization [facility] [employer] [facility] ity Address [address] [place] [address] Care Team Providers Care Leave Specialist Name Role Phone Unavailable Primary Care Provider [...]
--- NOTE | 2024-03-13 08:46 | PFT_ITS ---
Flows: FEV1: 80 % of predicted at 2.49 L FVC: 81 % of predicted at 3.25 L FEV1/FVC: 76 % Bronchodilator response: Present in small to medium airways only Volumes: Total lung capacity: 76 % of predicted at 4.76 L Residual volume: 71 % of predicted at 1.40 L Slow vital capacity: 77 % of predicted at 3.37 L Expiratory reserve volume: 83 % of predicted at 0.90 L Diffusion capacity: Normal Impression: Mild restrictive ventilatory defect with bronchodilator response present in small to medium airways only. MTDD
== END 2024-03-13 08:26 | disposition home or self-care (01) ==
LOC: HO.RESP 08:25
PROVIDERS: PCP Internal Medicine; Visit Provider Internal Medicine Pulmonary Disease
DX: J45.909 Unspecified asthma, uncomplicated (principal)
CPT/HCPCS: 94010; 94640; 94727; 94729; 99212

== ENCOUNTER 2024-03-13 09:20 | Outpatient (AMB) | payer MEDICARE, MEDICAID, SELFPAY ==
[2024-03-13 09:26] VITALS: BP 142/76; PULSE 88; O2SAT 97; BMI 37.3
--- NOTE | 2024-03-13 09:26 | MHC.OFFVIS ---
Vital Signs 03/13/24 09:26 Height 5 ft 6 in Weight 231 lb BMI 37.3 BP 142/76 H Blood Pressure Location Lt brachial Position Sitting Pulse 88 Pulse Source Pulse Oximeter Pulse Oximetry (%) 97 Oxygen Delivery Method Room Air Intake Visit Reasons: Asthma/PFT & CT Follow Up Guest Services Manager Required: Yes Guest Services Manager Services: Guest Services Manager Present Guest Services Manager Name: # [phone] Information Interpreted: non-clinical & clinical Allergies No Known Allergies Allergy (Verified 03/13/24 09:33) Medication List - Last Reconciled 03/13/24 by Leona Lombardo, EEO OFFICER albuterol sulfate 90 mcg/actuation 2 puffs inhalation QID PRN buspirone 15 mg PO TID 30 days prazosin 2 mg PO BID 30 days quetiapine 600 mg (2 x 300 mg) PO BEDTIME 30 days rosuvastatin 20 mg PO DAILY 90 days zolpidem 10 mg PO BEDTIME PRN 30 days HPI HPI Asthma/PFT & CT Follow Up: Details: 59-year-old gentleman, recent 30+ pack-year smoker, with prior history of carcinoid rejection approximately [address] Ale[facility] at [facility] who started the developed pain at the prior surgery site. After the last office visit patient had CT chest that did not show any underlying pulmonary concerns. Patient states that his pain is better and recurs mostly with coughing. He did complete his pulmonary function test that shows mild restrictive ventilatory defect. 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 ADRIANA (generalized anxiety disorder) Class 2 obesity with body mass index (BMI) of 36.0 to 36.9 in adult Surgical History Hx of colonoscopy History of surgery History of surgery History of surgery on arm Family History Father Cancer Mother Stomach cancer Sister Myocardial infarction Brother Cancer Son Anxiety and depression Family/Other FH: mental illness Social History (Updated 03/04/24 @ 08:49 by Carmela Shin MD) Housing: Apartment Alcohol intake: former Patient Tobacco Use Status: Former Tobacco user Tobacco use type: Cigarette Cigarettes Per Day: 4 Years Smoked: started around age 16, 0.5PPD, quit e-Cigarette/Vaping Use: Never Used Second Hand Smoke Exposure: No service: No Current occupational status: unemployed and disabled Cognitive needs: No Hearing needs: No Vision needs: Yes Review of Systems Const Denies daytime sleepiness, Denies excessive sweating, Denies fatigue, Denies fever(s), Denies lethargy, Denies malaise, Denies night sweats, Denies snoring and Denies weight loss Eyes Denies blurry vision and Denies itchy eyes ENT Denies nasal congestion, Denies post nasal drip, Denies sinus pain, Denies sinus pressure and Denies other ( Thrush) Card Denies chest pain, Denies pedal edema, Denies dyspnea, Denies orthopnea and Denies paroxysmal nocturnal dyspnea Resp Denies cough, Denies hemoptysis, Denies excessive phlegm production, Denies dyspnea, Denies snoring and Denies wheezing GI Denies abdominal pain and Denies heartburn Musc Denies myalgias, Denies arthralgias and Denies joint swelling Skin/Breast Denies rash Neuro Denies memory loss and Denies seizure-like activity Psych Denies abnormal sleep pattern, Denies anxiety and Denies memory loss Endo Denies excessive sweating, Denies fatigue and Denies heat intolerance Carlito/Lymph Denies easy bruising Aller/Immun Denies itchy eyes, Denies seasonal rhinorrhea and Denies wheezing Physical Exam Vital Signs: Last Vital Signs Pulse 88 03/13/24 09:26 BP 142/76 H 03/13/24 09:26 Pulse Ox 97 03/13/24 09:26 Oxygen Delivery Method Room Air 03/13/24 09:26 BMI result Body Mass Index 37.3 Const General: no acute distress and alert Nutritional Appearance: not obese Orientation/consciousness: Other orientation findings ( oriented) HEENT Head: Yes atraumatic Eyes General: appearance normal, both eyes and all related structures Sclerae: sclerae normal EOM: EOMs intact bilaterally Neck Neck: Yes supple Lymphatic: no lymphadenopathy noted Resp Effort & Inspection: normal respiratory effort and no use of accessory muscles Auscultation: clear to auscultation bilaterally Cardio Rate: regular rate Rhythm: regular rhythm Heart sounds: no gallops, no murmurs and no rubs Skin General skin exam: other ( warm) Extrem General: No clubbing, No cyanosis and No edema Assessment & Plan Assessment & Plan (1) Asthma: Code(s): J45.909 - Unspecified asthma, uncomplicated Category: Medical Plan: Results of pulmonary function test reviewed. Now well controlled on as needed albuterol MDI. Continue current regimen. (2) Restrictive ventilatory defect: Code(s): R94.2 - Abnormal results of pulmonary function studies Category: Medical Plan: Secondary to prior surgery and body habitus. Continue to monitor clinically. (3) Personal history of nicotine dependence: Code(s): Z87.891 - Personal history of nicotine dependence Category: Medical Plan: Continue with yearly screening, next in February of 2025. Coding Level of Care Code Est Pt Level 4 (26036) Diagnoses Asthma J45.909 Restrictive ventilatory defect R94.2 Personal history of nicotine dependence Z87.891
--- OUTSIDE RECORDS SUMMARY | 2024-03-13 09:50 | XMS_ITS | Clinical Summary ---
Author Organization [facility] ity Address [address] [place] [address] Care Team Providers Care Liquor Clerk Name Role Phone Unavailable Primary Care Provider [...]
== END 2024-03-13 09:40 | disposition home or self-care (01) ==
PROVIDERS: PCP Internal Medicine; Visit Provider Internal Medicine Pulmonary Disease
DX: J45.909 Unspecified asthma, uncomplicated (principal); R94.2 Abnormal results of pulmonary function studies; Z87.891 Personal history of nicotine dependence
CPT/HCPCS: 99214

== ENCOUNTER 2024-04-16 15:02 | Emergency (ER) | payer MEDICARE, MEDICAID, SELFPAY ==
--- NOTE | ~2024-04-16 | CT_ITS ---
CLINICAL HISTORY: fall, +head strike CT cervical spine without contrast Comparison: None Findings: Vertebral alignment is within normal limits. There is straightening of the normal cervical lordosis and mild multilevel degenerative change. No acute fractures or dislocations. Visualized intracranial contents are unremarkable. No cervical fluid collections or masses. No consolidation or effusion at the lung apices. IMPRESSION: No acute findings. This document has been electronically signed by: Juan Carter MD on 04/16/2024 18:09:12
--- NOTE | ~2024-04-16 | CT_ITS ---
CLINICAL HISTORY: fall, +head strike CT head without contrast Comparison: None Findings: No intra-axial mass, midline shift, hydrocephalus, or acute hemorrhage. No significant atrophy-like change or white matter disease. There is no sinus or mastoid fluid. The orbits are unremarkable. No skull fracture. IMPRESSION: 1. No acute intracranial findings. This document has been electronically signed by: Juan Carter MD on 04/16/2024 18:11:33
[2024-04-16 15:05] VITALS: BP 127/91; PULSE 113; RESP 20; TEMP 36.8; O2SAT 95; BMI 30.8
--- NOTE | 2024-04-16 15:06 | ED.SKABFB ---
HPI - Skin/Abscess/Foreign Bdy General Chief complaint: Wound/Laceration Stated complaint: chin laceration Time Seen by Provider: 04/16/24 19:48 Source: patient Mode of arrival: ambulatory Limitations: no limitations History of Present Illness ED Provider: COTY WEBSTER narrative: 59 yo male with PMH of asthma, HLD, anxiety, depression, not on blood thinners here with c/o trip and fall while using a laundry cart. He hit his anterior R chin on the laundry cart. He denies LOC or any other injuries. He has a facial laceration because of it. He has not had severe headache or vomiting. 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) Tetanus up to date: unsure Location: face Severity: mild Quality: aching Pain Consistency: intermittent Relieving factors: none Exacerbating factors: movement Context: other (recent trauma) Associated symptoms: denies other symptoms Treatments prior to arrival: none Related Data Previous Rx's ?Medication ?Instructions ?Recorded prazosin 2 mg capsule 2 mg PO BID 30 days #60 caps 03/26/23 quetiapine 300 mg tablet 600 mg (2 x 300 mg) PO BEDTIME 30 03/26/23 days #60 tabs buspirone 15 mg tablet 15 mg PO TID 30 days #90 tabs 03/27/23 albuterol sulfate 90 mcg/actuation 2 puff inhalation QID PRN 03/04/24 aerosol inhaler shortness of breath or wheezing #6.7 grams zolpidem 10 mg tablet 10 mg PO BEDTIME PRN sleep 30 days 03/04/24 #30 tabs rosuvastatin 20 mg tablet 20 mg PO DAILY 90 days #90 tabs 03/30/24 amoxicillin 875 mg-potassium 1 tab PO BID #10 tabs 04/16/24 clavulanate 125 mg tablet Allergies Allergy/AdvReac Type Severity Reaction Status Date / Time No Known Allergies Allergy Verified 04/16/24 15:09 Review of Systems Review of Systems: Constitutional : No Fever, No Chills, Cardiovascular : No Chest Pain, No SOB Respiratory : No Dyspnea Gastrointestinal : No abdominal pain Musculoskeletal : No Joint Swelling Skin : No rash, positive skin laceration Neuro : No Weakness, No Numbness, no LOC Psych : No SI/HI No other symptoms or concerns PMFSH Past Medical History Attestation statement: The following information was validated with the patient. 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 ADRIANA (generalized anxiety disorder) Class 2 obesity with body mass index (BMI) of 36.0 to 36.9 in adult Surgical History Hx of colonoscopy History of surgery History of surgery History of surgery on arm Family History Family History Father Cancer Mother Stomach cancer Sister Myocardial infarction Brother Cancer Son Anxiety and depression Family/Other FH: mental illness Social History Social History Housing: Apartment Alcohol intake: former Patient Tobacco Use Status: Former Tobacco user Tobacco use type: Cigarette Cigarettes Per Day: 4 Years Smoked: started around age 16, 0.5PPD, quit e-Cigarette/Vaping Use: Never Used Second Hand Smoke Exposure: No service: No Current occupational status: unemployed and disabled Cognitive needs: No Hearing needs: No Vision needs: Yes Physical Exam Vital Signs: Vital Signs: Last Vital Signs Temp 98.3 F 04/16/24 15:05 Pulse 113 H 04/16/24 15:05 Resp 20 04/16/24 15:05 BP 127/91 H 04/16/24 15:05 Pulse Ox 95 04/16/24 15:05 O2 Del Method Room Air 04/16/24 15:05 BMI result Body Mass Index 30.8 Appearance: Alert. Oriented X3. No acute distress. Eyes: Pupils equal, round and reactive to light. ENT: Pharynx normal. R lower anterior chin stellate 3cm laceration, intraoral there is no tooth avulsion or signs of bone exposed but inner right lower lip there is a 1cm laceration noted, bleeding controlled Neck: Normal inspection. Neck supple. CVS: Normal heart rate and rhythm. Pulses normal. Respiratory: No respiratory distress. Breath sounds normal. Abdomen: Soft and nontender. Skin: Skin warm and dry. Normal skin color. Normal skin turgor. Extremities: No lower extremity edema. No calf ttp Neuro: Oriented X 3. No motor deficit. No sensory deficit. CN2-12 intact Course Course Course Narrative: This is a 59-year-old male who presents emergency department with complaints of chin laceration which occurred this morning. Patient states that while he was caring down a washing machine, on the last step, in his leg got tangled up, and he struck his chin on the washer. He states that he was ?days?, denies complete LOC. Unsure when his last tetanus shot was. He is neurologically intact. He does have partial-thickness laceration to his chin likely requiring suture repair. Plan: CT head/neck; wound repair Reevaluation(s) Reevaluation #1: inner lip closed with 1 chromic gut suture Medical Decision Making Medical Decision Making MDM Narrative: 59 yo male with PMH of asthma, HLD, anxiety, depression, not on blood thinners s/p trip and fall striking chin on laundry cart no LOC no other injuries he has external facial laceration with internal lip laceration - at this time trauma CT head and cspine negative from triage. I see no avulsed teeth or signs of jaw fracture though he has very poor dentition. He has no trismus. Will suture external face and loosely approximate her inner lip - given dentition and open both ext and inner I have ordered augemtin x 5 days. Differential Diagnosis Differential Diagnoses: The differential diagnosis associated with the presentation includes laceration, trauma, swelling Admission/Observation Consideration of admission/observation: Escalation of care including admission/observation considered GCS 15 stable for DC Independent Interpretation I performed an independent interpretation of an: CT Scan (no trauma) Radiology Impression Discussion of test interpretation with radiology: I have reviewed the radiologist's reading. External Record Review External record reviewed: Outpatient record Prescription Management I considered prescription management with: Antibiotic Procedures Laceration Laceration 1: Site: face Side (If applicable): right Size (cm): 3 Description: stellate Depth: simple, single layer Local Anesthetic: lidocaine 1% Amount of anesthesia used (mL): 5 Pre-repair: wound explored, irrigated extensively and deep structures intact Skin layer closed with: other (prolene) Size (cm): 6-0 Number of sutures: 3 Technique: simple, interrupted Subcutaneous layer closed with: chromic gut Size: 5-0 Number of sutures: 1 Technique: simple, interrupted Discharge Plan Discharge Clinical Impression: Facial laceration Qualifiers: Encounter type: initial encounter Qualified Code(s): S01.81XA - Laceration without foreign body of other part of head, initial encounter Laceration of internal mouth Qualifiers: Encounter type: initial encounter Qualified Code(s): S01.512A - Laceration without foreign body of oral cavity, initial encounter Patient Disposition: Home, Self-Care Instructions: Laceration (ED) Additional Instructions: CT brain and cervical spine no trauma seen finish and take antibiotics for 5 days return for increased pain and swelling soft foods for 3 days rinse mouth gently after eating to clear any food STITCHES OUT in 7 days stitch inside your mouth will dissolve in 5 to 10 days Prescriptions: New amoxicillin-pot clavulanate 875-125 mg tablet 1 tab PO BID Qty: 10 0RF No Action prazosin 2 mg capsule 2 mg PO BID 30 Days Qty: 60 0RF quetiapine 300 mg tablet 600 mg PO BEDTIME 30 Days Qty: 60 0RF buspirone 15 mg tablet 15 mg PO TID 30 Days Qty: 90 0RF zolpidem 10 mg tablet 10 mg PO BEDTIME PRN (Reason: sleep) 30 Days Qty: 30 0RF rosuvastatin 20 mg tablet 20 mg PO DAILY 90 Days Qty: 90 1RF albuterol sulfate 90 mcg/actuation HFA aerosol inhaler 2 puff inhalation QID PRN (Reason: shortness of breath or wheezing) Qty: 6.7 0RF Print Language: Kinyarwanda
[2024-04-16] MEDS: Diphth,Pertus(ACell),Tet Adult 0.5 ML SYRINGE IM (20:36)
[2024-04-16] MEDS: Lidocaine HCl 1 % MPF 5 ML VIAL SUBCUT (20:37)
[2024-04-16] MEDS: Amoxicillin/Potassium Clav 875 MG TABLET PO (20:37)
[2024-04-16 20:39] VITALS: BP 120/72; PULSE 85; RESP 16; TEMP 36.8; O2SAT 95
== END 2024-04-16 20:40 | disposition home or self-care (01) ==
LOC: HO.ED 20:32
PROVIDERS: Emergency Provider Emergency Medicine; PCP Internal Medicine
DX: S01.81XA Laceration without foreign body of other part of head, initial encounter (principal); S01.512A Laceration without foreign body of oral cavity, initial encounter; R51.9 Headache, unspecified; W22.09XA Striking against other stationary object, initial encounter; Y93.01 Activity, walking, marching and hiking; Y92.89 Other specified places as the place of occurrence of the external cause; Y99.8 Other external cause status; Z23 Encounter for immunization
CPT/HCPCS: 12013; 70450; 72125; 90471; 90715; 99282; 99284; J2003

== ENCOUNTER → 2024-04-16 15:10 | Outpatient (BNV) | payer MEDICARE, MEDICAID, SELFPAY | PROVIDERS: PCP Internal Medicine; Visit Provider Radiology Vascular & Interventional Radiology | DX: S09.90XA Unspecified injury of head, initial encounter (principal); W19.XXXA Unspecified fall, initial encounter | CPT/HCPCS: 70450; 72125 ==

== ENCOUNTER 2024-07-21 07:40 | Outpatient (AMB) | payer MEDICARE, MEDICAID, SELFPAY ==
--- OUTSIDE RECORDS SUMMARY | 2024-07-21 07:43 | XMS_ITS | Clinical Summary ---
[facility] [address] [place] [address] Care Team Providers Care Hospitality Aide Name Role Phone Unavailable Primary Care Provider Unavailabl e Social History Tobacco Use Types Packs/Day Years Used Date Smoking Tobacco: Never Assessed Sex and Gender Information Value Date Recorded Sex Assigned at Not on file Legal Sex Male 2:57 AM EST Gender Identity Not on file Sexual Orientation Not on file Plan of Treatment Health Maintenance Due Date Last Done Comments DTaP,Tdap,and Td Vaccines (1 - Tdap) 1982 Pneumococcal Vaccine: 50+ Ye ars (1 of 1 - PCV) 2013 Zoster Vaccines (1 of 2) 2013 Cholesterol Screening (Lipid Panel) 01/14/2022 Colorectal Cancer Screening: Colonoscopy 01/14/2022 Depression Screening 01/14/2022 HIV Screening 01/14/2022 Hepatitis C Screening 01/14/2022 Social Influencers of Health Screening 01/14/2022 COVID-19 Vaccine (1 - 2023-2 5 season) 2023 Influenza Vaccine (Season Ended) 2024 RSV Immunization Adult Patie nts (1 - 1-dose 75+ series) 2038 HIB [...] patient's age to complete this topic Meningococcal B Vaccine Aged Out No l onger eligible based on patient's age to complete [...]
[2024-07-21 07:44] VITALS: BP 132/80; BMI 37.8
--- NOTE | 2024-07-21 07:44 | MHC.PC.OV ---
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: No Accompanied by: Self / Same As Patient Allergies No Known Allergies Allergy (Verified 07/21/24 07:54) Medication List - Last Reconciled 07/21/24 by Carmela Shin MD albuterol sulfate 90 mcg/actuation 2 puffs inhalation QID PRN buspirone 15 mg PO TID 30 days prazosin 2 mg PO BID 30 days quetiapine 600 mg (2 x 300 mg) PO BEDTIME 30 days rosuvastatin 20 mg PO DAILY 90 days zolpidem 10 mg PO BEDTIME PRN 30 days Tobacco use date assessed: 03/04/24 Dental Screening Dental Screen Date: 03/04/24 HPI HPI Comments History of Present Illness Details The patient is a 59-year-old male presenting with left costal pain. The pain manifests as aching and throbbing, especially noticeable during specific activities like cooking. Localization includes the left hip and left rib area, without any antecedent trauma. Episodic in nature, the pain impacts the patient's daily activities, as per his description. The patient's medical history encompasses well-managed conditions under a current medicinal regime. These include essential hypertension, asthma, generalized anxiety disorder, insomnia, depression, and hyperlipidemia. Medications prescribed include a bronchodilator, buspirone, prazosin, quetiapine, and rosuvastatin. No medication allergies are reported. His lifestyle adjustments include refraining from smoking. The patient recently had a colonoscopy in 2022 and reports a stable blood pressure of 132/80 mmHg. Though he experiences multiple chronic conditions, they appear to be controlled with reported improvements through ongoing treatments. 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 ADRIANA (generalized anxiety disorder) Class 2 obesity with body mass index (BMI) of 36.0 to 36.9 in adult Surgical History Hx of colonoscopy History of surgery History of surgery History of surgery on arm Family History Father Cancer Mother Stomach cancer Sister Myocardial infarction Brother Cancer Son Anxiety and depression Family/Other FH: mental illness Social History (Updated 07/21/24 @ 08:00 by Carmela Shin MD) Housing: Apartment Alcohol intake: current Alcohol intake frequency: holidays/special occasions only Alcohol type: beer Patient Tobacco Use Status: Former Tobacco user Tobacco use type: Cigarette Cigarettes Per Day: 4 Years Smoked: started around age 16, 0.5PPD, quit e-Cigarette/Vaping Use: Never Used Second Hand Smoke Exposure: No service: No Current occupational status: unemployed and disabled Cognitive needs: No Hearing needs: No Vision needs: Yes Questionnaire PHQ-9 Over the last 2 weeks, how often have you been bothered by any of the following problems? 1. Little interest or pleasure in doing things: not at all 2. Feeling down, depressed, or hopeless: not at all 3. Trouble falling or staying asleep, or sleeping too much: not at all 4. Feeling tired or having little energy: not at all 5. Poor appetite or overeating: not at all 6. Feeling bad about yourself - or that you are a failure or have let yourself or your family down: not at all 7. Trouble concentrating on things, such as reading the newspaper or watching television: not at all 8. Moving or speaking so slowly that other people could have noticed. Or the opposite - being so fidgety or restless that you have been moving around a lot more than usual: not at all 9. Thoughts that you would be better off or of hurting yourself in some way: not at all Total score: 0 Depression Screening Interpretation: Negative Depression Screening Done: Yes 98157 - PHQ-9 Billing: Yes Source: Developed by Drs. Domingo Randolph, Kayleigh Qureshi, Gautam Salgado and colleagues, with an educational rodney from [employer]. Thrive Questionnaire Date Thrive assessed: 03/04/24 I am a: Patient What is your living situation today?: I have a steady place to live Within the past 12 months, did the food you bought not last and you didn't have the money to get more?: I choose not to answer this question Within the past 12 months, did you worry whether your food would run out before you got money to buy more?: I choose not to answer this question Do you have trouble paying for medicines?: I choose not to answer this question Do you have trouble getting transportation to medical appointments?: I choose not to answer this question Do you have trouble paying your heating and electricity bill?: I choose not to answer this question Do you have trouble taking care of your child, family member or friend?: I choose not to answer this question Do you have trouble with day-to-day activities such as bathing, preparing meals, shopping, managing finances, etc.?: I choose not to answer this question Are you currently unemployed and looking for a job?: I choose not to answer this question Are you interested in more education?: I choose not to answer this question Please select the resources that you would like help with: None Currently or been in a relationship where the following occur: I choose not to answer THRIVE Score: 0 ADRIANA-7 AMB Questionnaire ADRIANA-7 Date ADRIANA - 7 assessed: 03/04/24 Source: Developed by Drs. Domingo Randolph, Kayleigh Qureshi, Gautam Salgado and colleagues, with an educational rodney from [employer]. Review of Systems Const All systems reviewed & are unremarkable except as noted in HPI and below Eyes Reports no additional complaints, Denies change in vision and Denies other visual disturbances Card Denies chest pain at rest, Denies chest pain with activity, Denies edema, Denies irregular heart rhythm, Denies claudication, Denies dyspnea, Denies dyspnea on exertion, Denies orthopnea, Denies paroxysmal nocturnal dyspnea and Denies slow heart rate Resp Denies cough, Denies dyspnea and Denies dyspnea on exertion GI Denies abdominal pain, Denies change in bowel habits, Denies excessive flatus, Denies nausea and Denies vomiting Denies urinary hesitancy, Denies urinary incontinence and Denies urinary urgency Neuro Denies lack of coordination Physical exam (Primary Care) Vital Signs: Last Vital Signs BP 132/80 07/21/24 07:44 BMI result Body Mass Index 37.8 Tobacco/Smoking Status: Tobacco use Status Tobacco use date assessed 03/04/24 07/21/24 07:49 Patient Tobacco Use Status Former Tobacco user 07/21/24 07:49 Tobacco use type Cigarette 07/21/24 07:49 e-Cigarette/Vaping Use Never Used 07/21/24 07:49 PHQ-9: PHQ-9 Score PHQ-9: Total score 0 07/21/24 07:49 Depression Screening Interpretation: Negative Thrive Assessment: Date of Thrive Assessment Date Thrive assessed 03/04/24 07/21/24 07:49 Currently or been in a relationship where the following occur: I choose not to answer Resp Effort & Inspection: normal respiratory effort Auscultation: clear to auscultation bilaterally Cardio Jugular venous distension: no JVD Rate: regular rate Rhythm: regular rhythm Heart sounds: S1 normal heart sound present and S2 normal heart sound present Extrem General: Yes full ROM Coding Level of Care Code Est Pt Level 4 (23286) Complex EM visit Add On G2211 Diagnoses Rib pain on left side R07.81 Dyslipidemia E78.5 Minimal recurrent major depressive disorder F33.9 ADRIANA (generalized anxiety disorder) F41.1 Asthma J45.909 Additional Codes PHQ-9 - 30858 - PHQ-9 Billing: Yes ([id number]) Time Spent (min) 23 Assessment & Plan Assessment & Plan (1) Rib pain on left side: Code(s): R07.81 - Pleurodynia Category: Medical (2) Dyslipidemia: Code(s): E78.5 - Hyperlipidemia, unspecified Category: Medical (3) Minimal recurrent major depressive disorder: Code(s): F33.9 - Major depressive disorder, recurrent, unspecified Category: Medical (4) ADRIANA (generalized anxiety disorder): Code(s): F41.1 - Generalized anxiety disorder Category: Medical (5) Asthma: Code(s): J45.909 - Unspecified asthma, uncomplicated Category: Medical Plan I will proceed to order a chest X-ray for the left ribs to explore potential etiologies of the patient's costal and hip pain. Concurrent laboratory tests will be conducted to evaluate his current health status, addressing any possible needed changes in his treatment regimen. The patient should maintain his current drug therapy for hypertension, COPD, anxiety, insomnia, and hyperlipidemia; adherence is acknowledged as beneficial. Follow-up appointments will enable review of ongoing treatment efficacy and implement judicious modifications where necessary. Patient was informed and verbally consented to the use of an ambient scribe for clinic note documentation during this visit. I discussed with the patient the rationale for obtaining a chest X-ray to further investigate the left costal and hip pain. The potential benefit of identifying any specific issues for targeted intervention was explained. Considering his multiple medical comorbidities, I reiterated the necessity for regular monitoring through lab tests, emphasizing their role in maintaining optimal health and medication efficacy. Details about medication adherence and reviewing any side effects were covered, promoting an open line of communication regarding any changes in his health status. I confirmed the importance of follow-up visits to evaluate progress and make any necessary adjustments to his treatment plan. Orders: Orders XR ribs LT 2V Today R07.81 - Pleurodynia Lipid Panel Today E78.5 - Hyperlipidemia, unspecified Comprehensive [place]. Panel Fast Today E78.5 - Hyperlipidemia, unspecified Patient Instructions: - Proceed to the hospital for a chest X-ray of the left ribs. - Complete fasting labs tomorrow morning. - Continue current medications as prescribed. - Monitor for any new symptoms or worsening of current symptoms. - Schedule and attend follow-up appointments for review of test results. - Maintain adherence to medication regimen and report any side effects.
== END 2024-07-21 08:03 | disposition home or self-care (01) ==
LOC: HO.HMCH 07:41
PROVIDERS: PCP Internal Medicine; Visit Provider Internal Medicine
DX: R07.81 Pleurodynia (principal); E78.5 Hyperlipidemia, unspecified; F33.9 Major depressive disorder, recurrent, unspecified; F41.1 Generalized anxiety disorder; J45.909 Unspecified asthma, uncomplicated

== ENCOUNTER → 2024-07-21 07:40 | Outpatient (BNVA) | payer MEDICARE, MEDICAID, SELFPAY | PROVIDERS: PCP Internal Medicine; Visit Provider Internal Medicine | DX: R07.81 Pleurodynia (principal); E78.5 Hyperlipidemia, unspecified; F33.9 Major depressive disorder, recurrent, unspecified; F41.1 Generalized anxiety disorder; J45.909 Unspecified asthma, uncomplicated | CPT/HCPCS: 96127; 99212 ==

== ENCOUNTER 2024-12-11 08:27 | Outpatient (AMB) | payer MEDICARE, MEDICAID, SELFPAY ==
--- OUTSIDE RECORDS SUMMARY | 2024-12-11 08:41 | XMS_ITS | Clinical Summary ---
[facility] Organization [facility] Address [address] [place] [address] Care Team Providers Care Records Clerk Name Role Phone Unavailable Primary Care Provider Unavailabl e Social History Tobacco Use Types Packs/Day Years Used Date Smoking Tobacco: Never Assessed Sex and Gender Information Value Date Recorded Sex Assigned at Not on file Legal Sex Male 2:57 AM EST Gender Identity Not on file Sexual Orientation Not on file Plan of Treatment Health Maintenance Due Date Last Done Comments Colorectal Cancer Screening: Colonoscopy 1963 DTaP,Tdap,and Td Vaccines (1 - Tdap) 1982 Pneumococcal Vaccine: 50+ Ye ars (1 of 1 - PCV) 2013 Zoster Vaccines (1 of 2) 2013 Cholesterol Screening (Lipid Panel) 01/14/2022 HIV Screening 01/14/2022 Hepatitis C Screening 01/14/2022 Social Influencers of Health Screening 01/14/2022 Depression Screening 02/12/2024 COVID-19 Vaccine (1 - 2023-2 5 season) 2024 Influenza Vaccine (#1) 2024 RSV Immunization Adult Patie nts (1 [...]
[2024-12-11 08:53] VITALS: BP 120/78; PULSE 81; O2SAT 95; BMI 39.3
--- NOTE | 2024-12-11 08:53 | A.OFFVIS_ITS ---
Vital Signs 12/11/24 08:53 Height 5 ft 6 in Weight 243 lb 9.773 oz BMI 39.3 BP 120/78 Blood Pressure Location Lt brachial Position Sitting Pulse 81 Pulse Source Pulse Oximeter Pulse Oximetry (%) 95 Oxygen Delivery Method Room Air Intake Visit Reasons: Asthma Business Solutions Analyst Required: Yes Business Solutions Analyst Services: Business Solutions Analyst Present Business Solutions Analyst Name: [id number] Allergies No Known Allergies Allergy (Verified 12/11/24 08:57) HPI HPI Asthma: Details: 59-year-old gentleman, recent 30+ pack-year smoker, with prior history of carcinoid resection approximately [address] Alejo at [facility] who started to develop pain at the prior surgery site. Thereafter patient had CT chest that did not show any underlying pulmonary concerns. Patient states that his pain is better and recurs mostly with coughing. His r espiratory symptoms are well controlled on albuterol MDI. He denies recent exacerbations. 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 ADRIANA (generalized anxiety disorder) Class 2 obesity with body mass index (BMI) of 36.0 to 36.9 in adult Surgical History Hx of colonoscopy History of surgery History of surgery History of surgery on arm Family History Father Cancer Mother Stomach cancer Sister Myocardial infarction Brother Cancer Son Anxiety and depression Family/Other FH: mental illness Social History Housing: Apartment Alcohol intake: current Alcohol intake frequency: holidays/special occasions only Alcohol type: beer Patient Tobacco Use Status: Former Tobacco user Tobacco use type: Cigarette Cigarettes Per Day: 4 Years Smoked: started around age 16, 0.5PPD, quit e-Cigarette/Vaping Use: Never Used Second Hand Smoke Exposure: No service: No Current occupational status: unemployed and disabled Cognitive needs: No Hearing needs: No Vision needs: Yes Review of Systems Const Denies daytime sleepiness, Denies excessive sweating, Denies fatigue, Denies fever(s), Denies lethargy, Denies malaise, Denies night sweats, Denies snoring and Denies weight loss Eyes Denies blurry vision and Denies itchy eyes ENT Denies nasal congestion, Denies post nasal drip, Denies sinus pain, Denies sinus pressure and Denies other ( Thrush) Card Denies chest pain, Denies pedal edema, Denies dyspnea, Denies orthopnea and Denies paroxysmal nocturnal dyspnea Resp Denies cough, Denies hemoptysis, Denies excessive phlegm production, Denies dyspnea, Denies snoring and Denies wheezing GI Denies abdominal pain and Denies heartburn Musc Denies myalgias, Denies arthralgias and Denies joint swelling Skin/Breast Denies rash Neuro Denies memory loss and Denies seizure-like activity Psych Denies abnormal sleep pattern, Denies anxiety and Denies memory loss Endo Denies excessive sweating, Denies fatigue and Denies heat intolerance Carlito/Lymph Denies easy bruising Aller/Immun Denies itchy eyes, Denies seasonal rhinorrhea and Denies wheezing Physical Exam Vital Signs: Last Vital Signs Pulse 81 12/11/24 08:53 BP 120/78 12/11/24 08:53 Pulse Ox 95 12/11/24 08:53 Oxygen Delivery Method Room Air 12/11/24 08:53 BMI result Body Mass Index 39.3 Const General: no acute distress and alert Nutritional Appearance: not obese Orientation/consciousness: Other orientation findings ( oriented) HEENT Head: Yes atraumatic Eyes General: appearance normal, both eyes and all related structures Sclerae: sclerae normal EOM: EOMs intact bilaterally Neck Neck: Yes supple Lymphatic: no lymphadenopathy noted Resp Effort & Inspection: normal respiratory effort and no use of accessory muscles Auscultation: clear to auscultation bilaterally Cardio Rate: regular rate Rhythm: regular rhythm Heart sounds: no gallops, no murmurs and no rubs Skin General skin exam: other ( warm) Extrem General: No clubbing, No cyanosis and No edema Assessment & Plan Assessment & Plan (1) Asthma: Code(s): J45.909 - Unspecified asthma, uncomplicated Category: Medical Plan: Well controlled on as needed albuterol MDI. Continue current regimen. (2) Personal history of nicotine dependence: Code(s): Z87.891 - Personal history of nicotine dependence Category: Medical Plan: Status post resection of malignant carcinoid around 2019. Continue with lung cancer screening. Next in January of 2025. Medications: Refilled albuterol sulfate 90 mcg/actuation 2 puffs inhalation QID PRN 6.7 grams 6RF shortness of breath or wheezing Coding Level of Care Code Est Pt Level 4 (17953) Diagnoses Asthma J45.909 Personal history of nicotine dependence Z87.891
== END 2024-12-11 09:05 | disposition home or self-care (01) ==
LOC: HO.HPS 08:27
PROVIDERS: PCP Internal Medicine; Visit Provider Internal Medicine Pulmonary Disease
DX: J45.909 Unspecified asthma, uncomplicated (principal); Z87.891 Personal history of nicotine dependence
CPT/HCPCS: 99214

== ENCOUNTER → 2024-12-11 08:27 | Outpatient (BNVA) | payer MEDICARE, MEDICAID, SELFPAY | PROVIDERS: PCP Internal Medicine; Visit Provider Internal Medicine Pulmonary Disease | DX: J45.909 Unspecified asthma, uncomplicated (principal); Z87.891 Personal history of nicotine dependence; Z85.110 Personal history of malignant carcinoid tumor of bronchus and lung | CPT/HCPCS: 99212 ==